=== PATIENT | female | born 1950 | race Caucasian/White ===

== ENCOUNTER 2016-08-31 20:13 | Emergency (ER) | payer MEDICARE, OTHER ==
[~2016-08-31 20:13] MED LIST: ADVAIR DIS1 PUFF/DO2 IH; ANORO ELLIPTA 62.1 - IH; APRESOLINE-DPS50 MG PO; ASA325 MG PO; ASMANEX220 MC1 IH; ASPIR 8181 MG PO; ASPIRIN EC325 MG PO; ASPIRIN EC81 MG PO; ATIVAN-DPS0.5 MG PO; ATIVAN-DPS1 MG PO; ATIVAN0.5 MG PO; ATORVASTATIN CA80 MG PO; BUDESONIDE IH; BUMEX DPS1 MG PO; CALCITRIOL0.5 MCG PO; CALCIUM500 M1 PO; CALTRATE-600 W600 MG PO; CELLCEPT DPS250 MG PO; CELLCEPT500 MG PO; COREG DPS12.5 MG PO; COREG25 MG PO; COUMADIN2.5 MG PO; COUMADIN5 MG PO; DELTASONE DPS10 MG PO; DELTASONE DPS20 MG PO; DUONEB DPS3 ML IH; ELIQUIS5 MG PO; FEOSOL-DPS325 MG PO; FLAGYL-DPS500 MG PO; FLEXERIL DPS5 MG PO; GLUCAGON EMERGEN1 MG IM; GLUCAGON1 MG/ML PO; GLUCAGON1 MG/ML SQ; HABITROL DPS14 MG TP; HABITROL DPS7 MG TD; HUMALOG 50100 UNITS/; HUMALOG 50100 UNITS/ SQ; HUMALOG SQ; HUMALOG100 UNIT/2 IV; HUMALOG100 UNIT/2 SQ; KLOR-CON M2020 ME1 PO; LASIX DPS20 MG PO; LASIX DPS80 MG PO; LEVAQUIN750 MG PO; LIPITOR DPS40 MG PO; LIPITOR80 MG PO; MAG-OX400 MG PO; MAGNESIUM OXID400 MG PO; METOPROLOL TART25 MG PO; MIRAPEX DPS0.25 MG PO; MIRAPEX0.25 MG PO; NICOTINE PATCH1 EAC1 TD; NORVASC DPS10 MG PO; NORVASC5 MG PO; OMEPRAZOLE10 MG PO; OMNICEF DPS300 MG PO; OXYCODONE-ACET1 EAC1 PO; OYSTER SHELL C500 MG PO; PERCOCET 5-3251 EACH PO; POTASSIUM CHLO20 ME2 PO; PROAIR HFA8.5 GM IH; PROAIR RESPICL90 MCG IH; PROGRAF1 MG PO; ROCALTROL DP0.25 MCG PO; ROCALTROL DPS0.5 MCG PO; SENNA LAX8.6 MG PO; SPIRIVA18 MCG IH; SYNTHROID88 MCG PO; TACROLIMUS1 MG PO; TRANDATE DPS100 MG PO; VIIBRYD40 MG PO; XARELTO15 MG PO; ZAROXOLYN2.5 MG PO; ZITHROMAX250 MG PO; [UNRECOGNIZED DRUG - OTHER] IH
[2016-10-03] MEDS ORDERED: BREO ELLIPTA 21 EACH IH (10:06)
[2016-10-03] MEDS ORDERED: GUAIFENESIN ER600 MG PO (10:07)
[2016-10-03] MEDS ORDERED: BUMEX DPS1 MG PO (10:10)
[2016-10-03] MEDS ORDERED: COUMADIN5 MG PO (10:11)
[2016-10-03] MEDS ORDERED: ATIVAN-DPS1 MG PO (10:15)
[2016-10-03] MEDS ORDERED: CALCITRIOL0.5 MCG PO (10:18)
[2016-10-03] MEDS ORDERED: PROGRAF1 MG PO (10:18)
[2016-10-03] MEDS ORDERED: SPIRIVA18 MCG IH (10:19)
[2016-10-03] MEDS ORDERED: NICOTINE PATCH1 EAC1 TD (10:20)
[2016-10-03] MEDS ORDERED: CEPHALEXIN500 MG PO (10:20)
[2016-10-03] MEDS ORDERED: NORVASC5 MG PO (10:21)
[2016-11-03] MEDS ORDERED: HUMALOG100 UNIT/1 SQ (14:42)
[2016-11-03] MEDS ORDERED: GUAIFENESIN ER600 MG PO (14:43)
[2016-11-03] MEDS ORDERED: BUMETANIDE2 MG PO (14:43)
[2016-11-03] MEDS ORDERED: KLOR-CON M2020 ME1 PO (14:43)
[2016-11-03] MEDS ORDERED: BREO ELLIP1 PUFF/DOS IH (14:43)
[2016-11-03] MEDS ORDERED: COUMADIN2.5 MG PO (14:44)
[2016-11-03] MEDS ORDERED: COUMADIN5 MG PO (14:44)
[2016-11-03] MEDS ORDERED: ASPIRIN81 MG PO (14:45)
[2016-11-03] MEDS ORDERED: CARDIZEM CD360 MG PO (14:52)
[2016-11-03] MEDS ORDERED: DELTASONE DPS10 MG PO (14:53)
[2016-11-24] MEDS ORDERED: BUMETANIDE2 MG PO (10:04)
[2016-11-24] MEDS ORDERED: ZAROXOLYN5 MG PO (10:06)
[2016-11-24] MEDS ORDERED: OXY IR DPS5 MG PO (10:07)
[2016-11-24] MEDS ORDERED: KLOR-CON M2020 ME1 PO (10:09)
[2016-11-24] MEDS ORDERED: NICODERM CQ1 EAC1 TP (10:11)
[2016-11-24] MEDS ORDERED: ABILIFY5 MG PO (10:11)
[2016-12-15] MEDS ORDERED: DIFLUCAN DPS100 MG PO (09:03)
[2016-12-15] MEDS ORDERED: LANOXIN DPS0.125 MG PO (09:03)
[2017-01-15] MEDS ORDERED: HUMALOG100 UNIT/2 SQ (17:51)
[2017-01-15] MEDS ORDERED: ATIVAN-DPS0.5 MG PO (17:52)
[2017-01-15] MEDS ORDERED: BUMETANIDE2 MG PO (17:52)
[2017-01-15] MEDS ORDERED: TRANDATE DPS100 MG PO (17:52)
[2017-01-15] MEDS ORDERED: NICOTINE PATCH1 EAC1 TD (17:52)
[2017-01-15] MEDS ORDERED: ABILIFY5 MG PO (17:53)
[2017-01-15] MEDS ORDERED: ASPIRIN EC81 MG PO (17:53)
[2017-01-15] MEDS ORDERED: LIPITOR80 MG PO (17:53)
[2017-01-15] MEDS ORDERED: CALTRATE-600 W600 MG PO (17:54)
[2017-01-15] MEDS ORDERED: LANOXIN DPS0.125 MG PO (17:54)
[2017-01-15] MEDS ORDERED: DILTIAZEM ER360 MG PO (17:54)
[2017-01-15] MEDS ORDERED: FEOSOL-DPS325 MG PO (17:55)
[2017-01-15] MEDS ORDERED: DUONEB DPS3 ML PO (17:55)
[2017-01-15] MEDS ORDERED: SLOW-MAG71.5 MG PO (17:56)
[2017-01-15] MEDS ORDERED: BREO ELLIP1 PUFF/DOS IH (17:56)
[2017-01-15] MEDS ORDERED: GUAIFENESIN ER600 MG PO (17:56)
[2017-01-15] MEDS ORDERED: MIRAPEX DPS0.25 MG PO (17:57)
[2017-01-15] MEDS ORDERED: CELLCEPT500 MG PO (17:57)
[2017-01-15] MEDS ORDERED: PROAIR HFA8.5 GM IH (17:57)
[2017-01-15] MEDS ORDERED: SPIRIVA18 MCG IH (17:58)
[2017-01-15] MEDS ORDERED: TACROLIMUS1 MG PO (17:58)
[2017-01-15] MEDS ORDERED: VIIBRYD40 MG PO (17:58)
[2017-01-15] MEDS ORDERED: ROCALTROL DPS0.5 MCG PO (17:58)
[2017-01-15] MEDS ORDERED: KLOR-CON M2020 ME1 PO (17:59)
[2017-01-15] MEDS ORDERED: ZAROXOLYN5 MG PO (17:59)
== END 2016-08-31 21:10 | disposition home or self-care (01) ==
DX: E11.621 Type 2 diabetes mellitus with foot ulcer (principal); L97.519 Non-pressure chronic ulcer of other part of right foot with unspecified severity; R23.8 Other skin changes; I11.0 Hypertensive heart disease with heart failure; I50.9 Heart failure, unspecified; I48.91 Unspecified atrial fibrillation; F17.210 Nicotine dependence, cigarettes, uncomplicated; Z79.01 Long term (current) use of anticoagulants; Z85.118 Personal history of other malignant neoplasm of bronchus and lung; Z88.8 Allergy status to other drugs, medicaments and biological substances

== ENCOUNTER 2016-09-27 14:27 | Inpatient (IN) | payer MEDICARE, OTHER ==
[~2016-09-27] VITALS: Ht 170.2 cm; Wt 85.8 kg
--- NOTE | 2016-09-30 02:20 | NUR ---
09/30 0220 Pt had episode of chest pain, N/V. Tele showed AFib. Called Dr Verde, gave a NS bolus and Lopressor. HR was in 140s. Zofran given for nausea. Rated pain 9/10 chest pain. On 4L/NC to keep sats up. No change, again called Dr. Verde. Gave Amio bolus and started on continuous drip. After bolus, pt converted back to NSR. Pain was down to 5/10 chest pain. Appeared to be resting more comfortably. Dtr and granddaughter at bedside.
[2016-10-03] MEDS ORDERED: BREO ELLIPTA 21 EACH IH (10:06)
[2016-10-03] MEDS ORDERED: GUAIFENESIN ER600 MG PO (10:07)
[2016-10-03] MEDS ORDERED: BUMEX DPS1 MG PO (10:10)
[2016-10-03] MEDS ORDERED: COUMADIN5 MG PO (10:11)
[2016-10-03] MEDS ORDERED: ATIVAN-DPS1 MG PO (10:15)
[2016-10-03] MEDS ORDERED: PROGRAF1 MG PO (10:18)
[2016-10-03] MEDS ORDERED: CALCITRIOL0.5 MCG PO (10:18)
[2016-10-03] MEDS ORDERED: SPIRIVA18 MCG IH (10:19)
[2016-10-03] MEDS ORDERED: CEPHALEXIN500 MG PO (10:20)
[2016-10-03] MEDS ORDERED: NICOTINE PATCH1 EAC1 TD (10:20)
[2016-10-03] MEDS ORDERED: NORVASC5 MG PO (10:21)
--- NOTE | 2016-10-04 09:42 | CO ---
ADMIT: 09/27/2016 RM/LOC: 425 [facility] MR#: [id number] [address] [address] ARCADIO ROSALES [address] [place] [address] Consultation SEX: F AGE: 66 : 1950 DATE OF CONSULTATION: 09/27/2016 ATTENDING PHYSICIAN: Scot Campos CONSULTING PHYSICIAN: Javier Martinez MD REASON FOR CONSULTATION: Kidney transplant, acute kidney injury, and hypercalcemia. HISTORY OF PRESENT ILLNESS: The patient is a 66-year-old female, who has a history of end-stage renal disease, secondary to diabetic nephropathy. She is status post living-unrelated kidney transplant from her granddaughter in the year 2011. Her baseline serum creatinine has been around 1.9-2.0. She also has hypoparathyroidism and hypercalcemia for which she is on exogenous calcium and calcitriol. She presented to the Dr. Campos's office yesterday because of concerns of her supplemental oxygen and upon labs check, she was reportedly found to have a calcium of 15 along with creatinine of 3.2. She is asymptomatic at this time, although she goes on to mention that she has been somewhat short of breath. She has some dyspnea on exertion. She continues to smoke cigarettes on a daily basis. Denies any fevers, chills, or rigors. Her cough is no different than her baseline. She denies any urinary complaints. Denies any orthopnea or PND. She takes Bumex 2 mg twice a day for her lower extremity edema and she does not have any at this time. REVIEW OF SYSTEMS: A complete review of systems negative in detail except as mentioned in the history of present illness above. PAST MEDICAL HISTORY: 1. Hypertension. 2. Type 2 diabetes mellitus. 3. Diastolic heart failure, chronic. 4. Carotid stenosis. 5. End-stage renal disease, presumed secondary to diabetic nephropathy. She was previously on peritoneal dialysis. She received a living-related kidney transplant in the year 2011. 6. Restless legs syndrome. 7. Dyslipidemia. 8. Hypothyroidism. 9. Chronic back pain. 10.Carcinoma of the lung, status post upper lobe resection. 11.COPD. 12.Ongoing tobacco abuse. 13.On supplemental oxygen around 2-2.5 L. 14.Obstructive sleep apnea. 15.Nonobstructive coronary artery disease. 16.Hypothyroidism and hypocalcemia. ALLERGIES: TO HYDROCODONE. ADMIT: 09/27/2016 RM/LOC: 425 [facility] MR#: [id number] [address] [address] CEMARCADIO MORRELL [address] [place] [address] Consultation SEX: F AGE: 66 : 1950 MEDICATIONS: 1. She takes tacrolimus 3 mg twice a day along with MMF 1000 mg twice a day. 2. She also takes Bumex 2 mg twice a day. 3. She takes calcitriol and calcium, the does of which is not clear. SOCIAL HISTORY: She does smoke cigarettes on a daily basis. Denies any alcohol or recreational drug use. FAMILY HISTORY: No family history of chronic kidneys or renal replacement therapy. PHYSICAL EXAMINATION: VITAL SIGNS: Temperature 97.3 Fahrenheit, pulse 67, blood pressure 116/59, saturating 91% on 2 L nasal cannula. GENERAL: She is comfortable in her recliner. HEENT: Head is nontraumatic and normocephalic. Extraocular movements are intact. Dry mucosa. NECK: Supple without any JVD. CHEST: Clear to auscultation. CVS: Regular rhythm. S1 and S2. No rubs, murmurs, or gallops. ABDOMEN: Soft and nontender. EXTREMITIES: No edema. SKIN: No rash or nodules. NEUROLOGIC: Alert and oriented x 3. She is able to move all extremities. PSYCHIATRIC: Affect and memory within normal limits. LABORATORY DATA: None available at this time. Per report, creatinine was 3.2 and calcium was 15.2. ASSESSMENT AND PLAN: 1. Kidney transplant status-monitor allograft function with chemistries and urine studies. Her decline in her kidney function could be secondary to hypercalcemia. 2. Immunosuppression-continue tacrolimus 3 mg twice a day along with MMF 1000 mg twice a day. 3. Hypercalcemia-stop exogenous calcium supplements as well as calcitriol. I will aggressively resuscitate with normal saline and Lasix along with that. Monitor calcium level closely. Thank you for this consultation and allowing me the opportunity to participate in this patient's care. Please do not hesitate to contact with any questions. Javier Martinez MD/ jaspal JOB #: [id number] CC: Scot Campos, Attending Physician Scot Campos, Family Physician
--- NOTE | 2016-10-04 16:22 | HP ---
ADMIT: 09/27/2016 RM/LOC: 425 [facility] MR#: [id number] [address] [address] ARCADIO ROSALES [address] [place] [address] History and Physical SEX: F AGE: 66 : 1950 DATE OF SERVICE: CHIEF COMPLAINT: This is a 66-year-old female presented with some weakness and somnolence to the office today. I had just seen her yesterday. She had a calcium of 15.3. At that time, we were giving her IV fluid because of some low blood pressure and I advised her to be admitted to the hospital. We set this up; however, she refused because she reports she was feeling much better. We had her come back the next day for evaluation again, so her labs were done again today. Now her calcium is 15.4. She again says, she feels very terrible, on a scale of 1-10, she labels it 9. She has been very somnolent and has been falling asleep inadvertently. Her kidney function was worse yesterday, it is now up to 3.2, which is worse for her as well. She has some increased shortness of breath which is kind of chronic for her but she says this maybe worse. She denies any underlying urinary symptoms. Denies any changes in her medicine or changes in her symptoms, otherwise, she has been really sleepy. PAST HISTORY: 1. Kidney transplant. 2. Chronic kidney disease, on stage III after the transplant. 3. Hypothyroidism. 4. Chronic diastolic congestive heart failure. 5. COPD. 6. Chronic ongoing tobacco and nicotine dependence. 7. Chronic back pain. 8. History of right knee replacement. 9. History of tonsillectomy and kidney transplant. 10.History of hypocalcemia. 11.History of parathyroidectomy. SOCIAL HISTORY: She smokes. Her recently . Denies any current alcohol or drug use. She lives at home. Granddaughter helps take care of her. OTHER PAST HISTORY: Includes diabetes, uses the insulin pump. Paroxysmal atrial fibrillation, history of peripheral vascular disease with carotid stenosis. She has some obstructive sleep apnea, restless legs syndrome, history of PE, and chronic depression and anxiety. She has history of lung cancer, status post resection. FAMILY HISTORY: Reviewed but noncontributory except as above. REVIEW OF SYSTEMS: Other complete review of systems obtained negative except as above. PHYSICAL EXAMINATION: VITAL SIGNS: Temperature 97.3, pulse 63, respirations 22, blood pressure 168/75, oxygen saturation 91% on 4 L of oxygen by nasal cannula. GENERAL: This is an ill-appearing 66-year-old female. She is no acute ADMIT: 09/27/2016 RM/LOC: 425 [facility] MR#: [id number] [address] [facility] [address] [place] [address] History and Physical SEX: F AGE: 66 : 1950 distress but appears ill and is somnolent. HEENT: Pupils equal, round, and reactive to light and accommodation. Her extraocular muscles are intact. Her throat is clear but dry. NECK: Supple. Trachea midline. Thyroid not palpable. HEART: Regular rate and rhythm, 2/6 systolic murmur heard on the left sternal border. LUNGS: Diminished but clear bilaterally. ABDOMEN: Protuberant, mildly distended, mildly tympanic, nontender. Lower extremities have trace edema bilaterally. She can move all extremities equally bilaterally. She is quite somnolent. LABORATORY AND X-RAY DATA: As above. ASSESSMENT AND PLAN: 1. Acute kidney injury. 2. Hypercalcemia. 3. Somnolence. 4. Chronic diastolic congestive heart failure. 5. Chronic obstructive pulmonary disease. 6. History of kidney transplant. 7. Atrial fibrillation. 8. Chronic anticoagulation. PLAN: She has been admitted to the hospital. Renal consult obtained, get some help getting her calcium down, and then hopefully her kidney function will improve with that. We will watch her very closely in regard to her blood sugars as well as her fluid status. Scot Campos MD/ jaspal JOB #: [id number] CC: Scot Campos, Attending Physician Scot Campos, Family Physician
--- NOTE | 2016-10-08 12:58 | DS ---
ADMIT: 09/27/2016 RM/LOC: 425 [facility] MR#: [id number] [address] [place], [place] [address] ARCADIO ROSALES [address] [place] [address] General Discharge Summary SEX: F AGE: 66 : 1950 ADMISSION DATE: 09/27/2016 DISCHARGE DATE: 10/02/2016 FINAL DIAGNOSES: 1. Hypercalcemia. 2. Acute kidney injury, on chronic kidney disease. 3. History of renal transplant. 4. Chronic obstructive pulmonary disease. 5. Chronic diastolic congestive heart failure. 6. Atrial fibrillation. 7. History of pulmonary embolism. CONSULTANTS: Nephrology. REASON FOR ADMISSION: This is a 66-year-old female, presented to the office with somnolence and not feeling well. She was found to have severely-elevated calcium. She was admitted. See H and P for details. HOSPITAL COURSE: The patient was admitted, placed on IV fluids. Nephrology consult obtained. She was given IV fluid as well as IV Lasix and calcium started to come down nicely. She was feeling much better over the next few days. Blood sugars were elevated, she was monitoring her insulin pump. She had some blood pressure fluctuations, they were little more elevated by day of discharge. She ultimately had an episode of atrial fibrillation with RVR. We treated with IV Lopressor as well as a fluid bolus and ultimately, IV amiodarone bolus and drip. She converted back to normal sinus rhythm and did better. She also had some hypomagnesemia, was given some Mag sulfate and also by day of discharge, she feels much better, so she was arranged to be discharged to home with close followup. DISCHARGE MEDICATIONS: 1. Aspirin 81 mg daily. 2. Bumex 2 mg q.a.m., 1 mg p.m. 3. Caltrate 600 mg p.o. b.i.d. 4. CellCept 500 mg b.i.d. 5. Iron 325 mg b.i.d. 6. Keflex 1000 mg b.i.d. x2 more days. She was taking that for an upper respiratory infection. 7. Lipitor 80 mg at bedtime. 8. Mirapex 0.25 mg at bedtime. 9. Mucinex 600 mg b.i.d. 10.Norvasc 5 mg daily. 11.Prograf 3 mg p.o. b.i.d. 12.Rocaltrol 0.5 mcg one p.o. daily. 13.Labetalol 100 mg b.i.d. 14.Viibryd 40 mg daily. 15.Breo one puff daily. 16.Spiriva 1 puff daily. 17.Insulin pump per her own instructions. ADMIT: 09/27/2016 RM/LOC: 425 [facility] MR#: [id number] [address] [address] CEMPERARCADIO [address] [place] [address] General Discharge Summary SEX: F AGE: 66 : 1950 18.Habitrol patch 21 mcg daily. 19.Ativan 1 mg b.i.d. and 0.5 to 1 mg daily p.r.n. 20.Glucagon 1 mg kit daily p.r.n. 21.DuoNeb q.i.d. 22.Warfarin 5 mg on Friday and Saturdays and 2.5 mg on Friday, Friday, , Friday, and Friday. 23.Potassium chloride 20 mEq daily. She will have renal diet. PT/INR, BMP, and magnesium this coming Friday. She is on 1 L of oxygen with activity. Follow with me in less than 1 week and she should do daily weights. I did spend 35 minutes with her on the day of discharge, explaining her current diagnoses and how to prevent exacerbations, specifically watching her weights carefully and taking her medicines faithfully as well as strict control of her blood sugars. We went over her medication list and followup needs. I answered any questions that she may have. Scot Campos MD/ jaspal JOB #: [id number] CC: Scot Campos MD, Attending Physician Scot Campos MD, Family Physician
[2016-11-03] MEDS ORDERED: HUMALOG100 UNIT/1 SQ (14:42)
[2016-11-03] MEDS ORDERED: BUMETANIDE2 MG PO (14:43)
[2016-11-03] MEDS ORDERED: KLOR-CON M2020 ME1 PO (14:43)
[2016-11-03] MEDS ORDERED: BREO ELLIP1 PUFF/DOS IH (14:43)
[2016-11-03] MEDS ORDERED: GUAIFENESIN ER600 MG PO (14:43)
[2016-11-03] MEDS ORDERED: COUMADIN2.5 MG PO (14:44)
[2016-11-03] MEDS ORDERED: COUMADIN5 MG PO (14:44)
[2016-11-03] MEDS ORDERED: ASPIRIN81 MG PO (14:45)
[2016-11-03] MEDS ORDERED: CARDIZEM CD360 MG PO (14:52)
[2016-11-03] MEDS ORDERED: DELTASONE DPS10 MG PO (14:53)
[2016-11-24] MEDS ORDERED: BUMETANIDE2 MG PO (10:04)
[2016-11-24] MEDS ORDERED: ZAROXOLYN5 MG PO (10:06)
[2016-11-24] MEDS ORDERED: OXY IR DPS5 MG PO (10:07)
[2016-11-24] MEDS ORDERED: KLOR-CON M2020 ME1 PO (10:09)
[2016-11-24] MEDS ORDERED: NICODERM CQ1 EAC1 TP (10:11)
[2016-11-24] MEDS ORDERED: ABILIFY5 MG PO (10:11)
[2016-12-15] MEDS ORDERED: DIFLUCAN DPS100 MG PO (09:03)
[2016-12-15] MEDS ORDERED: LANOXIN DPS0.125 MG PO (09:03)
[2017-01-15] MEDS ORDERED: HUMALOG100 UNIT/2 SQ (17:51)
[2017-01-15] MEDS ORDERED: NICOTINE PATCH1 EAC1 TD (17:52)
[2017-01-15] MEDS ORDERED: TRANDATE DPS100 MG PO (17:52)
[2017-01-15] MEDS ORDERED: ATIVAN-DPS0.5 MG PO (17:52)
[2017-01-15] MEDS ORDERED: BUMETANIDE2 MG PO (17:52)
[2017-01-15] MEDS ORDERED: ABILIFY5 MG PO (17:53)
[2017-01-15] MEDS ORDERED: ASPIRIN EC81 MG PO (17:53)
[2017-01-15] MEDS ORDERED: LIPITOR80 MG PO (17:53)
[2017-01-15] MEDS ORDERED: LANOXIN DPS0.125 MG PO (17:54)
[2017-01-15] MEDS ORDERED: DILTIAZEM ER360 MG PO (17:54)
[2017-01-15] MEDS ORDERED: CALTRATE-600 W600 MG PO (17:54)
[2017-01-15] MEDS ORDERED: FEOSOL-DPS325 MG PO (17:55)
[2017-01-15] MEDS ORDERED: DUONEB DPS3 ML PO (17:55)
[2017-01-15] MEDS ORDERED: GUAIFENESIN ER600 MG PO (17:56)
[2017-01-15] MEDS ORDERED: SLOW-MAG71.5 MG PO (17:56)
[2017-01-15] MEDS ORDERED: BREO ELLIP1 PUFF/DOS IH (17:56)
[2017-01-15] MEDS ORDERED: PROAIR HFA8.5 GM IH (17:57)
[2017-01-15] MEDS ORDERED: CELLCEPT500 MG PO (17:57)
[2017-01-15] MEDS ORDERED: MIRAPEX DPS0.25 MG PO (17:57)
[2017-01-15] MEDS ORDERED: TACROLIMUS1 MG PO (17:58)
[2017-01-15] MEDS ORDERED: ROCALTROL DPS0.5 MCG PO (17:58)
[2017-01-15] MEDS ORDERED: VIIBRYD40 MG PO (17:58)
[2017-01-15] MEDS ORDERED: SPIRIVA18 MCG IH (17:58)
[2017-01-15] MEDS ORDERED: ZAROXOLYN5 MG PO (17:59)
[2017-01-15] MEDS ORDERED: KLOR-CON M2020 ME1 PO (17:59)
== END 2016-10-02 11:15 | disposition home or self-care (01) | DRG 683 ==
LOC: 4PCU 14:27
PROVIDERS: ADMIT Internal Medicine
DX: N17.9 Acute kidney failure, unspecified (principal); I50.32 Chronic diastolic (congestive) heart failure; E11.22 Type 2 diabetes mellitus with diabetic chronic kidney disease; I13.0 Hypertensive heart and chronic kidney disease with heart failure and stage 1 through stage 4 chronic kidney disease, or unspecified chronic kidney disease; I48.0 Paroxysmal atrial fibrillation; E83.52 Hypercalcemia; G25.81 Restless legs syndrome; Z94.0 Kidney transplant status; E83.42 Hypomagnesemia; I65.29 Occlusion and stenosis of unspecified carotid artery; F32.9 Major depressive disorder, single episode, unspecified; N18.3 Chronic kidney disease, stage 3 (moderate); E03.9 Hypothyroidism, unspecified; J44.9 Chronic obstructive pulmonary disease, unspecified; M54.9 Dorsalgia, unspecified; F17.210 Nicotine dependence, cigarettes, uncomplicated; G89.29 Other chronic pain; I25.10 Atherosclerotic heart disease of native coronary artery without angina pectoris; E20.9 Hypoparathyroidism, unspecified; I73.9 Peripheral vascular disease, unspecified; G47.33 Obstructive sleep apnea (adult) (pediatric); F41.9 Anxiety disorder, unspecified; Z79.01 Long term (current) use of anticoagulants; Z96.41 Presence of insulin pump (external) (internal); Z85.118 Personal history of other malignant neoplasm of bronchus and lung; Z86.711 Personal history of pulmonary embolism; Z96.651 Presence of right artificial knee joint; Z79.899 Other long term (current) drug therapy

== ENCOUNTER 2016-10-18 17:39 | Emergency (ER) | payer MEDICARE, OTHER ==
[~2016-10-18 17:39] MED LIST changes: +BREO ELLIPTA 21 EACH IH; +CEPHALEXIN500 MG PO; +GUAIFENESIN ER600 MG PO
--- NOTE | 2016-10-22 10:17 | ER ---
ADMIT: 10/18/2016 RM/LOC: ER [facility] MR#: [id number] [id number] [place], [place] [address] ARCADIO ROSALES [address] [place] [address] Emergency Room Report SEX: F AGE: 66 : 1950 DATE: 10/18/2016 CHIEF COMPLAINT: Cough. HISTORY OF PRESENT ILLNESS: This is a chronically ill 66-year-old female, who presents to the ER with complaints of a cough for the past 7 days. She was seen by Dr. Campos on Friday and started on a course of doxycycline and prednisone for COPD exacerbation. She states since then, she has not really improved much. She continues to have a nagging cough, complains of chest pain with the cough. Admits to shortness of breath; however, she does have COPD, and does use oxygen at home, primarily at night. She has associated chills. PAST MEDICAL HISTORY: Significant for atrial fibrillation, on Coumadin. CHF, diabetes on insulin, hypertension, COPD, history of pneumonia and PE. She does have a kidney transplant and takes medications that secondarily caused immunosuppression. She has sleep apnea, restless legs syndrome and chronic kidney disease. SOCIAL HISTORY: She continues to smoke a half pack per day. COURSE IN THE EMERGENCY ROOM: VITAL SIGNS: Patient was seen and examined. BP 197/46, heart rate 94, respirations 20, temp 96.6. GENERAL: She is in no acute distress. She is alert. HEENT: Eyes normal inspection. Normal ENT. Pupils are equal and reactive. Ears are normal. No erythema or signs of infection. Nose has some scant clear fluid. Pharynx is normal. No erythema or tonsillar exudates. Airway is normal. NECK: Soft and supple. RESPIRATORY: She does have some coarse breath sounds with wheezes bilaterally. She does move air. She is in no respiratory distress. ABDOMEN: Nontender. HEART: Regular rate and rhythm. No murmurs, gallops, or rubs. SKIN: Warm and dry. She is slightly pale. EXTREMITIES: Nontender. She does have 1+ pitting edema bilaterally; however, she said this is improved. On further questioning, patient's dry weight typically runs 189-191 pounds. Today, she was 187 pounds. Does not feel like fluid is contributing to her current condition. I did get a chest x-ray, which was stable from an exam performed 3 weeks ago. She does have borderline cardiomegaly and increased interstitial markings consistent with her chronic COPD. I did get some basic lab work on. Her INR was 3.61. Sodium 138, potassium 4.3, chloride 98, CO2 was 30, BUN was 37, creatinine 2.3, which she typically run in the 2 secondary to chronic kidney disease. CK 93. She had a troponin 0.115. White count was 4.5, hemoglobin 10.7, hematocrit 35, platelets 146. EKG was performed showing a sinus rhythm with no acute ST-T changes. I did discuss this patient with Dr. Verde, who reviewed this case and thought it was to be appropriate for her to return home this evening with a tapering course of steroids and a followup with . ADMIT: 10/18/2016 RM/LOC: [facility] MR#: [id number] [address] [place] [id number] ARCADIO ROSALES [address] [place] [address] Emergency Room Report SEX: F AGE: 66 : 1950 Andres. I did review her troponin, she typically trends greater thanthreshold secondary to her kidney disease and comobidiites. IMPRESSION: 1. Acute on chronic bronchitis. 2. Chronic obstructive pulmonary disease, on oxygen at night. 3. Congestive heart failure. 4. Diabetes. 5. Hypertension. 6. History of pulmonary embolism. 7. Immunosuppression secndary to kidney transplant DISPOSITION: The patient was discharged with a course of prednisone to start after her current prescription with Dr. Campos as he started her on 50 mg burst for 5 days, she is to start 40 mg daily for 3 days and then 30 mg p.o. daily for 3 days, and then 20 mg p.o. daily for 3 days, and finally 10mg p.o. daily for 3 days. She was also provided a script for Phenergan with codeine 1 teaspoon every 4-6 hours as needed for cough. She is to follow up with Dr. Campos if she does not improve. Certainly, continue all of her home medications to include her oxygen and breathing treatments. Questions were sought and answered to the best of my ability and to the patient's satisfaction. She was discharged from the department in stable condition. BONNIE Jj / William Harvey MD / jaspal JOB #: [id number] CC: Chino Tai MD, Attending Physician Scot Campos MD, Family Physician
[2016-11-03] MEDS ORDERED: HUMALOG100 UNIT/1 SQ (14:42)
[2016-11-03] MEDS ORDERED: KLOR-CON M2020 ME1 PO (14:43)
[2016-11-03] MEDS ORDERED: GUAIFENESIN ER600 MG PO (14:43)
[2016-11-03] MEDS ORDERED: BREO ELLIP1 PUFF/DOS IH (14:43)
[2016-11-03] MEDS ORDERED: BUMETANIDE2 MG PO (14:43)
[2016-11-03] MEDS ORDERED: COUMADIN2.5 MG PO (14:44)
[2016-11-03] MEDS ORDERED: COUMADIN5 MG PO (14:44)
[2016-11-03] MEDS ORDERED: ASPIRIN81 MG PO (14:45)
[2016-11-03] MEDS ORDERED: CARDIZEM CD360 MG PO (14:52)
[2016-11-03] MEDS ORDERED: DELTASONE DPS10 MG PO (14:53)
[2016-11-24] MEDS ORDERED: BUMETANIDE2 MG PO (10:04)
[2016-11-24] MEDS ORDERED: ZAROXOLYN5 MG PO (10:06)
[2016-11-24] MEDS ORDERED: OXY IR DPS5 MG PO (10:07)
[2016-11-24] MEDS ORDERED: KLOR-CON M2020 ME1 PO (10:09)
[2016-11-24] MEDS ORDERED: NICODERM CQ1 EAC1 TP (10:11)
[2016-11-24] MEDS ORDERED: ABILIFY5 MG PO (10:11)
[2016-12-15] MEDS ORDERED: DIFLUCAN DPS100 MG PO (09:03)
[2016-12-15] MEDS ORDERED: LANOXIN DPS0.125 MG PO (09:03)
[2017-01-15] MEDS ORDERED: HUMALOG100 UNIT/2 SQ (17:51)
[2017-01-15] MEDS ORDERED: NICOTINE PATCH1 EAC1 TD (17:52)
[2017-01-15] MEDS ORDERED: TRANDATE DPS100 MG PO (17:52)
[2017-01-15] MEDS ORDERED: ATIVAN-DPS0.5 MG PO (17:52)
[2017-01-15] MEDS ORDERED: BUMETANIDE2 MG PO (17:52)
[2017-01-15] MEDS ORDERED: ASPIRIN EC81 MG PO (17:53)
[2017-01-15] MEDS ORDERED: LIPITOR80 MG PO (17:53)
[2017-01-15] MEDS ORDERED: ABILIFY5 MG PO (17:53)
[2017-01-15] MEDS ORDERED: CALTRATE-600 W600 MG PO (17:54)
[2017-01-15] MEDS ORDERED: DILTIAZEM ER360 MG PO (17:54)
[2017-01-15] MEDS ORDERED: LANOXIN DPS0.125 MG PO (17:54)
[2017-01-15] MEDS ORDERED: DUONEB DPS3 ML PO (17:55)
[2017-01-15] MEDS ORDERED: FEOSOL-DPS325 MG PO (17:55)
[2017-01-15] MEDS ORDERED: SLOW-MAG71.5 MG PO (17:56)
[2017-01-15] MEDS ORDERED: BREO ELLIP1 PUFF/DOS IH (17:56)
[2017-01-15] MEDS ORDERED: GUAIFENESIN ER600 MG PO (17:56)
[2017-01-15] MEDS ORDERED: CELLCEPT500 MG PO (17:57)
[2017-01-15] MEDS ORDERED: PROAIR HFA8.5 GM IH (17:57)
[2017-01-15] MEDS ORDERED: MIRAPEX DPS0.25 MG PO (17:57)
[2017-01-15] MEDS ORDERED: TACROLIMUS1 MG PO (17:58)
[2017-01-15] MEDS ORDERED: ROCALTROL DPS0.5 MCG PO (17:58)
[2017-01-15] MEDS ORDERED: SPIRIVA18 MCG IH (17:58)
[2017-01-15] MEDS ORDERED: VIIBRYD40 MG PO (17:58)
[2017-01-15] MEDS ORDERED: KLOR-CON M2020 ME1 PO (17:59)
[2017-01-15] MEDS ORDERED: ZAROXOLYN5 MG PO (17:59)
== END 2016-10-18 20:20 | disposition home or self-care (01) ==
LOC: ER 17:39
DX: J44.1 Chronic obstructive pulmonary disease with (acute) exacerbation (principal); E11.9 Type 2 diabetes mellitus without complications; I10 Essential (primary) hypertension; Z86.711 Personal history of pulmonary embolism; Z79.01 Long term (current) use of anticoagulants; Z79.82 Long term (current) use of aspirin; Z88.5 Allergy status to narcotic agent

== ENCOUNTER 2016-10-29 14:55 | Inpatient (IN) | payer MEDICARE, OTHER ==
[~2016-10-29] VITALS: Ht 170.2 cm; Wt 85.2 kg
--- NOTE | ~2016-10-29 | ECH ---
Transthoracic Echocardiography Report (TTE) Demographics Patient Name ARCADIO ROSALES Date of Study 10/30/2016 Patient Number [id number] Visit Number [id number] Date of 1950 Room Number 420 Accession Number [id number] Gender Female Age 66 year(s) Referring Andres Escobaris Isi Hoop Flaring Machine Operator Helper Amanda Duvall [facility] Physician Physician Interpreting Cooper Plummer Culinary Chef Physician Supervising Ordering Physician King Live Rodrigez MD, MD/MLP Nurse Stress Lab Head Conclusions Contractility Score Summary Normal Left Ventricular contractility was noted. Summary Technically adequate exam. The estimated left ventricular ejection fraction is 60-65% in underlying atrial fibrillation. Moderate to severe left ventricular hypertrophy. The left atrium is severely dilated by LA volume index measurement. Mild to moderate mitral valve stenosis. The mean gradient is 5.45 mmHg. Stable from exam 06/29/16. Mild mitral regurgitation by color Doppler. Small posterior pericardial effusion. Effusion smaller than exam 06/29/16. Recommendation The patient will be given the results of this study by the physician who ordered the exam. Procedure Type of Study TTE procedure:Echo Limited SF. Procedure Date Date: 10/30/2016 Start: 11:18 AM Technical Quality: Adequate visualization Indications:Atrial fibrillation and Congestive heart failure. Appropriate Use Criteria: 9 Height: 67 inches Weight: 184 pounds BSA: 1.95 m Rhythm: Atrial fibrillation HR: 70 bpm BP: 166/69 mmHg M-Mode/2D Measurements LV Diastolic Dimension: 4.98 cm LV Systolic Dimension: 3.77 cm LV Septum Diastolic: 1.56 cm LV PW Diastolic: 1.99 cm AO Root Dimension: 2.47 cm Cardiac Output: 2.5 l/min LA Dimension: 4.48 cm Cardiac Index: 1.28 l/min*m RV Diastolic Dimension: 2.72 cm LA volume index: 51 ml/m Post Pericard Effusion: 0.9 cm LVOT: 1.72 cm LVOT VTI: 15.37 cm RV Base: 3.4 cm LV Stroke volume: 35.69 ml RV Mid: 2.2 cm LV Stroke volume index: 18.3 ml/m RV Length: 6.2 cm Doppler Measurements AV Peak Velocity: 1.18 m/s MV Peak E-Wave: 1.76 m/s AV Peak Gradient: 5.57 mmHg MV Peak A-Wave: 0.72 m/s AV Mean Gradient: 3.43 mmHg MV E/A Ratio: 2.44 LVOT Peak Velocity: 0.85 m/s MV P1/2t: 59.7 msec AV Area (Continuity):1.6 cm MV Deceleration Time: 227.9 msec MV Area (PHT): 3.68 cm PV Peak Velocity: 1.1 m/s PV Peak Gradient: 4.84 mmHg RA Area: 13.7 cm Findings Left Ventricle The left ventricle is normal in size . Moderate to severe left ventricular hypertrophy. Diastolic function indeterminate due to patient's arrhythmia. Right Ventricle Normal right ventricle structure and function. Left Atrium The left atrium is severely dilated by LA volume index measurement. Right Atrium Normal right atrial size. Mitral Valve Moderate mitral annular calcification. Mild to moderate mitral valve stenosis. The mean gradient is 5.45 mmHg. Mild mitral regurgitation by color Doppler. Aortic Valve The aortic valve is mildly sclerotic. There is no aortic regurgitation by color Doppler. Tricuspid Valve Normal tricuspid valve structure and function. Trivial tricuspid regurgitation by color Doppler. Pulmonic Valve Normal pulmonic valve structure and function. Mild pulmonic valve regurgitation by color Doppler. Pericardial Effusion Small posterior pericardial effusion. Miscellaneous Visualized portions of the aortic root and ascending aorta appear normal in size. Pleural Effusion No evidence of pleural effusion. Contractility Score LV regional wall motion:(0-Non visualized 1-Normal 2-Hypokinesis 3-Akinesis 4-Dyskinesis 5-Aneurysm) Signature
--- NOTE | 2016-10-31 21:49 | NUR ---
Called and spoke with Dr Cotter regarding blood glucose greater than 400 (417, [phone]). She asked the pt to give bolus as normally would at home. Recheck in 2 hrs and change sites of pump if still >400. Explained to pt and she indicated understanding.
--- NOTE | 2016-11-03 12:33 | DS ---
ADMIT: 10/29/2016 RM/LOC: 420 [facility] [id number] [id number] [address] [place], [place] [address] ARCADIO ROSALES [address] [place] [address] Discharge Summary SEX: F AGE: 66 : 1950 ADMISSION DATE: 10/29/2016 DISCHARGE DATE: 11/01/2016 DISCHARGE DIAGNOSES: 1. Atrial fibrillation with rapid ventricular response. 2. Coronary artery disease. 3. Diabetes mellitus. 4. Status post kidney transplant on chronic immunosuppression. 5. Hypertension. 6. Hyperlipidemia. 7. COPD (chronic obstructive pulmonary disease). 8. Tobacco abuse. 9. Right foot ulcer, chronic. CONSULTATIONS: Cardiology. PROCEDURES: None. REASON FOR ADMISSION: A very pleasant, 66-year-old female presented to the emergency room on the day of admission with complaints of burning chest pain and palpitations. She was noted to be in atrial fibrillation with RVR, and she was admitted for further evaluation and treatment. For complete details, please see H and P dictated on day of admission. HOSPITAL COURSE: At the time of admission, the patient was placed in a monitored bed. Cardiology was consulted, and she underwent rate control strategies. She was followed with serial cardiac enzymes and EKGs. She was noted to have a mild troponin bump that was thought to be all demand ischemia from her atrial fibrillation with RVR. She is chronically anticoagulated, and she was continued on Coumadin. Cardiology made several medication changes including increasing Cardizem to using some p.r.n. Lopressor to get her rates finally under good control. She was seen by Wound Care during her hospitalization. She was continued on the remainder of her home medications. She continued to use her home insulin pump for glucose management as an inpatient and overall did well except for needing some p.r.n. Levemir given by Dr. Campos through the hospitalization. She ambulated and ate and was ADMIT: 10/29/2016 RM/LOC: 420 [facility] MR#: [id number] [address] [address] ARCADIO ROSALES [address] [place] [address] Discharge Summary SEX: F AGE: 66 : 1950 thought to be ready for discharge on 11/01. DISCHARGE MEDICATIONS: Are found on discharge medication list, noted increasing doses of labetalol and Cardizem per Cardiology. DISCHARGE ACTIVITY: As tolerated. DISCHARGE DIET: Cardiac ADA as tolerated. FOLLOWUP: She will have follow up with Cardiology when they will talk about outpatient stress testing, and she will have follow up with Dr. Campos in the next 7-10 days. Enio Rojas MD/ ania JOB #: [id number] CC: Scot Campos MD, Attending Physician Scot Campos MD, Family Physician
[2016-11-03] MEDS ORDERED: HUMALOG100 UNIT/1 SQ (14:42)
[2016-11-03] MEDS ORDERED: BUMETANIDE2 MG PO (14:43)
[2016-11-03] MEDS ORDERED: KLOR-CON M2020 ME1 PO (14:43)
[2016-11-03] MEDS ORDERED: BREO ELLIP1 PUFF/DOS IH (14:43)
[2016-11-03] MEDS ORDERED: GUAIFENESIN ER600 MG PO (14:43)
[2016-11-03] MEDS ORDERED: COUMADIN5 MG PO (14:44)
[2016-11-03] MEDS ORDERED: COUMADIN2.5 MG PO (14:44)
[2016-11-03] MEDS ORDERED: ASPIRIN81 MG PO (14:45)
[2016-11-03] MEDS ORDERED: CARDIZEM CD360 MG PO (14:52)
[2016-11-03] MEDS ORDERED: DELTASONE DPS10 MG PO (14:53)
--- NOTE | 2016-11-04 10:31 | ER ---
ADMIT: 10/29/2016 RM/LOC: 420 [facility] MR#: [id number] [id number] [place], [place] [address] ARCADIO ROSALES [address] [place] [address] Emergency Room Report SEX: F AGE: 66 : 1950 DATE: 10/29/2016 ADDENDUM: This is a 66-year-old white female with atrial fibrillation, but is coming in now with atrial fibrillation with rapid rate. She also has a little bump in her troponin. Chest x-ray, big heart. CBC negative. BNP is 10,893. Potassium is 3.1 which is borderline, which is low I should say. At this time, I spoke with Dr. Campos. He will admit the patient. Started a Cardizem drip on her while she was here. She will be admitted. CONDITION ON DISCHARGE: Serious, but stable. Chino Tai MD/ mkl JOB #: [id number] CC: Scot Campos MD, Attending Physician Scot Campos MD, Family Physician
--- NOTE | 2016-11-04 21:22 | HP ---
ADMIT: 10/29/2016 RM/LOC: 420 [facility] [id number] [id number] [address] [place], [place] [address] ARCADIO ROSALES [address] [place] [address] History and Physical SEX: F AGE: 66 : 1950 DATE OF SERVICE: CHIEF COMPLAINT: Chest pain. HISTORY OF PRESENT ILLNESS: This is a 66-year-old female. She presented with chest pain. She initially felt like she had some heartburn, but it kept getting worse, so she presented to the emergency room. She was found to have a heart rate in the 140s. She also had noted this when she checks her oxygen at home, it read her pulse in the 140s. She denies feeling any palpitations. Just felt like she had heartburn, sickness to her stomach and that is what led her to the emergency room. Since being in the emergency room, she has been started on diltiazem drip. Her heart rates now are anywhere from 100 to 120, it is irregular, and in atrial fibrillation. She currently feels well. Denies complaints. Denies any increased shortness of breath. Denies any urinary problems. PAST MEDICAL HISTORY: Reviewed from her last H and P, and unchanged. SOCIAL HISTORY: Reviewed from her last H and P, and unchanged. FAMILY HISTORY: Reviewed from her last H and P, and unchanged. MEDICATIONS: Reviewed from her last H and P, and unchanged. REVIEW OF SYSTEMS: Other complete review of systems was obtained and negative except as above. PHYSICAL EXAMINATION: VITAL SIGNS: Heart rates 100s to 120s, blood pressures 140s over 70s, oxygen saturation 93% on 2 L oxygen by nasal cannula, respirations 16. GENERAL: This is a well-appearing 66-year-old female. She is in no apparent distress. She is alert. She is oriented. HEENT: Head is normocephalic and atraumatic. Pupils are equal, round, and reactive to light and accommodation. Her extraocular muscles are intact. Her throat is clear. NECK: Supple. Trachea midline. Thyroid not palpable. HEART: Regular rate and rhythm with 3/6 systolic murmur. Tachycardic and irregular. LUNGS: Diminished to auscultation bilaterally. ABDOMEN: Mildly protuberant, but soft without any tenderness. EXTREMITIES: Lower extremities, has trace lower extremity pitting edema. She has a right plantar surface foot ulcer/wound, which is long-standing, looks clean and intact. NEURO: Cranial nerves are intact. She can move all extremities equally bilaterally. LABORATORY AND X-RAY DATA: Shows a mildly elevated troponin. CK is normal. EKG shows atrial fibrillation with RVR, no ischemic changes. X-rays unchanged. ADMIT: 10/29/2016 RM/LOC: 420 [facility] MR#: [id number] [address] [place] [address] History and Physical SEX: F AGE: 66 : 1950 ASSESSMENT: 1. Atrial fibrillation with rapid ventricular rate. 2. Chest pain. 3. Coronary artery disease. 4. History of renal transplant. 5. Diabetes. 6. Chronic kidney disease, stage 4. 7. Chronic diastolic congestive heart failure. PLAN: She will be admitted to PCU. We will continue her on her diltiazem drip to control her rates. We will monitor her enzymes to make sure she does not have any signs of coronary ischemia. I will consult Cardiology to see if she needs any different antiarrhythmic adjustment of her medications. I will continue to control her blood sugars with her own insulin pump, and continue her other same home medications. She is anticoagulated with warfarin, and we will monitor INR while she is here on that. Scot Campos MD/ jaspal JOB #: [id number] CC: Scot Campos, Attending Physician Scot Campos, Family Physician
--- NOTE | 2016-11-06 15:58 | CO ---
ADMIT: 10/29/2016 RM/LOC: 420 [facility] MR#: [id number] [address] [place], [place] [address] IRMA ROSALES [address] [place] [address] Consultation SEX: F AGE: 66 : 1950 ATTENDING PHYSICIAN: Scot Campos CONSULTING PHYSICIAN: Live De La Cruz MD REASON FOR CONSULT: Atrial fibrillation with RVR. Clair Paniagua RN, scribing for Dr. Live De La Cruz. HISTORY OF PRESENT ILLNESS: Irma is a pleasant 66-year-old female I have been asked to see in Cardiology consultation by Dr. Campos for atrial fibrillation with RVR. She follows regularly with Dr. Leonardo and was last seen in March of 2016 at [facility]. At that time, she did have a carotid duplex showing 60%-79% bilateral carotid disease and that is being followed. She also has history of paroxysmal atrial fibrillation and coronary artery disease. She is on anticoagulation with Coumadin for her atrial fibrillation as well as history of pulmonary emboli. Irma has history of hypertension, hyperlipidemia, diabetes, and continues to smoke about half a pack per day. She has history of sleep apnea which is treated with nasal cannula. She does not tolerate CPAP. She has history of diastolic heart failure and last echocardiogram was performed in May of 2016 showing ejection fraction of 65% with severe left atrial enlargement and moderate-to- severe left ventricular hypertrophy. Irma presented to [facility] with complaints of chest discomfort and palpitations. She stated that she was at home folding some laundry. She had felt well up to that point when all of a sudden, she had some chest discomfort that she thought was heartburn. She took some Maalox, but this did not help her symptoms and then she began to note that her heart rate was feeling very fast and she was more short of breath. She stated it was similar as to fast heart rates with her atrial fibrillation that she has had in the past. She called her daughter who came over and noted that her heart rate was in the 140s and brought her to the emergency room. She was given IV Cardizem which has decreased her heart rate down to the 80s this has just been discontinued right at the time of examination. She was started on oral Cardizem 120 daily. The patient denies any current chest pain, shortness of breath, palpitations, presyncope, or peripheral edema at this time. PAST MEDICAL HISTORY: Cardiac history as outlined above. Diabetes, hyperlipidemia, hypertension, continued tobacco use about a half a pack per day, history of lung cancer, history of end-stage renal disease with renal cancer status post kidney transplant, anemia, arthritis, skin cancer, chronic sinusitis, depression, gastroesophageal reflux disease, chronic headaches, primary hypothyroidism, papillary thyroid carcinoma, restless legs syndrome, thrush, and COPD. PAST SURGICAL HISTORY: Includes renal transplant, knee replacement, partial right nephrectomy prior to transplant, tonsillectomy, right knee arthroscopy x2, bilateral tubal ligation, right thyroid lobectomy, subtotal ADMIT: 10/29/2016 RM/LOC: 420 [facility] MR#: [id number] [address] [id number] [place], [place] [address] [address] Consultation SEX: F AGE: 66 : 1950 parathyroidectomy, history of lobectomy. ALLERGIES: NO KNOWN MEDICATION ALLERGIES. MEDICATIONS: Recently discontinued Cardizem drip at 5 mg an hour. Started on Cardizem 120 CD daily. Home medications that have been continued include: 1. Humalog pump. 2. Guaifenesin 600 b.i.d. 3. Breo 200 inhalation daily. 4. Bumetanide 2 mg p.o. twice daily. 5. Potassium chloride 20 mEq p.o. daily. 6. Coumadin 5 on and Saturdays and 2.5 on other days. 7. Aspirin 81 daily. 8. Atorvastatin 80 mg at bedtime. 9. Caltrate with vitamin D twice daily, 600 mg. 10.DuoNeb 4 times daily. 11.Ferrous sulfate 325 p.o. b.i.d. 12.Labetalol 100 mg p.o. twice daily. 13.Lorazepam 1 mg p.o. twice daily p.r.n. 14.Magnesium oxide 400 mg p.o. daily. 15.CellCept 500 mg twice daily. 16.Pramipexole 0.25 mg at bedtime. 17.ProAir 90 mcg, 2 puffs every 4 hours as needed. 18.Calcitriol 0.5 mcg twice daily. 19.Prograf 3 mg twice daily. 20.Spiriva 18 mcg daily. 21.Viibryd 40 mg daily. 22.Prednisone 20 mg daily until october 30 which would be today decreasing down to 10 mg starting tomorrow for 3 days. FAMILY HISTORY: Positive family history of coronary artery disease, cancer, diabetes. No documented history of stroke. SOCIAL HISTORY: Irma lives at home. Her children are here helping her. She denies any alcohol use. She does drink coffee on a regular basis. Low-fat, low- cholesterol diet. She continues to smoke daily about a half a pack per day and has done so for several years. REVIEW OF SYSTEMS: GENERAL: Denies increased fatigue, recent fever, chills, sweats, or weight changes. EYES: Denies any double vision, or blurry vision currently. THROAT, MOUTH, and EARS: Denies any sinus congestion, sore throat, or hearing loss. RESPIRATORY: History of COPD, recent hospital admissions for upper respiratory infections. Denies any hemoptysis. She does have sleep apnea, but is unable to tolerate CPAP and uses nasal cannula at night with oxygen. GASTROINTESTINAL: Denies any GI bleeding or stomach ulcers. Denies any ADMIT: 10/29/2016 RM/LOC: 420 [facility] MR#: [id number] 26[address] [facility] [address] [place] [phone] IRMA ROSALES [address] [place] [address] Consultation SEX: F AGE: 66 : 1950 gallbladder issues, heartburn, or acid reflux currently. GENITOURINARY: She is status post kidney transplant due to renal cell carcinoma. Denies any troubles with urination or blood in urine. MUSCULOSKELETAL: Denies any musculoskeletal pain or joint pain. Denies any gout. ENDOCRINE: History of hypothyroidism, history of diabetes. HEMATOLOGY: Has chronic anemia, has multiple history of cancer including renal cell, lung, skin, and parathyroid. Denies any current bleeding issues. NEUROLOGIC: Denies any stroke or seizure. Does have history of restless legs syndrome. PSYCHIATRIC: History of depression. Denies anxiety. PHYSICAL EXAMINATION: VITAL SIGNS: Blood pressure 166/69, heart rate 83, respirations 20, temperature 96.9, and oxygenation 95% on O2. SKIN: [place], warm and dry. EYES: Sclerae clear. No xanthelasmas. ENT: Oral mucosa is pink and moist. No jugular venous distention or carotid bruits. HEART: Irregularly irregular. No murmurs, gallops, or rubs. LUNGS: Decreased breath sounds bilaterally. ABDOMEN: Soft and nontender. MUSCULOSKELETAL: Gait is normal. EXTREMITIES: Peripheral pulses palpable. No clubbing, cyanosis or edema. PSYCHIATRIC: Alert and oriented. Mood and affect are appropriate. DIAGNOSTIC DATA: Sodium 142, potassium 4.0, BUN 30, creatinine 2.1, glucose 265, magnesium 1.9. Three sets cardiac enzymes have been performed with elevated troponin of 0.215. She has chronic elevation of troponin. White blood cell count 9.9, hemoglobin 11.9, hematocrit 37.9, and platelets 147. ASSESSMENT AND PLAN: 1. Atrial fibrillation with rapid ventricular response. 2. Hypertension. 3. History of diastolic heart failure. 4. History of bilateral carotid occlusive disease. I will continue recommendation with rate control for now. Increase Cardizem CD to 180 daily. I have reviewed her records to see when she was last normal sinus rhythm. I did find EKG in January of 2016 that did demonstrate sinus ADMIT: 10/29/2016 RM/LOC: 420 [facility] MR#: [id number] [address] [address] IRMA ROSALES [address] [place] [address] Consultation SEX: F AGE: 66 : 1950 rhythm at that time. She will continue on other home medications, but will stop amlodipine and just use Cardizem p.o. for now. She will continue on Coumadin. I would recheck echocardiogram to make sure there are no new changes including wall motion, ejection fraction, or valvular function. Enzymes are mildly elevated which is chronic for her. She has nonobstructive disease in the past. We will need to do stress as an outpatient at some point. Thank you for the consultation. I have read and agree with the documentation that has been completed regarding this visit. By signing this record, I attest that the documentation was completed in my physical presence and is an accurate record of the encounter. Clair Paniagua RN / Live De La Cruz MD / jaspal JOB #: [id number] CC: Scot Campos, Attending Physician Scot Campos, Family Physician
[2016-11-24] MEDS ORDERED: BUMETANIDE2 MG PO (10:04)
[2016-11-24] MEDS ORDERED: ZAROXOLYN5 MG PO (10:06)
[2016-11-24] MEDS ORDERED: OXY IR DPS5 MG PO (10:07)
[2016-11-24] MEDS ORDERED: KLOR-CON M2020 ME1 PO (10:09)
[2016-11-24] MEDS ORDERED: NICODERM CQ1 EAC1 TP (10:11)
[2016-11-24] MEDS ORDERED: ABILIFY5 MG PO (10:11)
[2016-12-15] MEDS ORDERED: LANOXIN DPS0.125 MG PO (09:03)
[2016-12-15] MEDS ORDERED: DIFLUCAN DPS100 MG PO (09:03)
[2017-01-15] MEDS ORDERED: HUMALOG100 UNIT/2 SQ (17:51)
[2017-01-15] MEDS ORDERED: ATIVAN-DPS0.5 MG PO (17:52)
[2017-01-15] MEDS ORDERED: BUMETANIDE2 MG PO (17:52)
[2017-01-15] MEDS ORDERED: NICOTINE PATCH1 EAC1 TD (17:52)
[2017-01-15] MEDS ORDERED: TRANDATE DPS100 MG PO (17:52)
[2017-01-15] MEDS ORDERED: LIPITOR80 MG PO (17:53)
[2017-01-15] MEDS ORDERED: ASPIRIN EC81 MG PO (17:53)
[2017-01-15] MEDS ORDERED: ABILIFY5 MG PO (17:53)
[2017-01-15] MEDS ORDERED: CALTRATE-600 W600 MG PO (17:54)
[2017-01-15] MEDS ORDERED: DILTIAZEM ER360 MG PO (17:54)
[2017-01-15] MEDS ORDERED: LANOXIN DPS0.125 MG PO (17:54)
[2017-01-15] MEDS ORDERED: DUONEB DPS3 ML PO (17:55)
[2017-01-15] MEDS ORDERED: FEOSOL-DPS325 MG PO (17:55)
[2017-01-15] MEDS ORDERED: SLOW-MAG71.5 MG PO (17:56)
[2017-01-15] MEDS ORDERED: BREO ELLIP1 PUFF/DOS IH (17:56)
[2017-01-15] MEDS ORDERED: GUAIFENESIN ER600 MG PO (17:56)
[2017-01-15] MEDS ORDERED: PROAIR HFA8.5 GM IH (17:57)
[2017-01-15] MEDS ORDERED: MIRAPEX DPS0.25 MG PO (17:57)
[2017-01-15] MEDS ORDERED: CELLCEPT500 MG PO (17:57)
[2017-01-15] MEDS ORDERED: TACROLIMUS1 MG PO (17:58)
[2017-01-15] MEDS ORDERED: VIIBRYD40 MG PO (17:58)
[2017-01-15] MEDS ORDERED: ROCALTROL DPS0.5 MCG PO (17:58)
[2017-01-15] MEDS ORDERED: SPIRIVA18 MCG IH (17:58)
[2017-01-15] MEDS ORDERED: KLOR-CON M2020 ME1 PO (17:59)
[2017-01-15] MEDS ORDERED: ZAROXOLYN5 MG PO (17:59)
== END 2016-11-01 13:22 | disposition home or self-care (01) | DRG 309 ==
LOC: ER 14:55 → 4PCU 17:26
PROVIDERS: ADMIT Internal Medicine
DX: I48.0 Paroxysmal atrial fibrillation (principal); I50.32 Chronic diastolic (congestive) heart failure; I13.10 Hypertensive heart and chronic kidney disease without heart failure, with stage 1 through stage 4 chronic kidney disease, or unspecified chronic kidney disease; N18.4 Chronic kidney disease, stage 4 (severe); Z94.0 Kidney transplant status; E11.22 Type 2 diabetes mellitus with diabetic chronic kidney disease; Z99.81 Dependence on supplemental oxygen; I65.23 Occlusion and stenosis of bilateral carotid arteries; J44.9 Chronic obstructive pulmonary disease, unspecified; J32.9 Chronic sinusitis, unspecified; F32.9 Major depressive disorder, single episode, unspecified; I25.10 Atherosclerotic heart disease of native coronary artery without angina pectoris; E78.5 Hyperlipidemia, unspecified; F17.210 Nicotine dependence, cigarettes, uncomplicated; L97.519 Non-pressure chronic ulcer of other part of right foot with unspecified severity; G47.30 Sleep apnea, unspecified; G25.81 Restless legs syndrome; K21.9 Gastro-esophageal reflux disease without esophagitis; E03.9 Hypothyroidism, unspecified; Z85.850 Personal history of malignant neoplasm of thyroid; Z85.118 Personal history of other malignant neoplasm of bronchus and lung; Z85.528 Personal history of other malignant neoplasm of kidney; Z85.828 Personal history of other malignant neoplasm of skin; Z86.711 Personal history of pulmonary embolism; Z90.5 Acquired absence of kidney; Z79.01 Long term (current) use of anticoagulants; Z96.659 Presence of unspecified artificial knee joint; Z96.41 Presence of insulin pump (external) (internal); Z79.82 Long term (current) use of aspirin; Z82.49 Family history of ischemic heart disease and other diseases of the circulatory system; Z09 Encounter for follow-up examination after completed treatment for conditions other than malignant neoplasm

== ENCOUNTER 2016-11-13 12:02 | Emergency (ER) | payer MEDICARE, OTHER ==
[~2016-11-13 12:02] MED LIST changes: +ASPIRIN81 MG PO; +BREO ELLIP1 PUFF/DOS IH; +BUMETANIDE2 MG PO; +CARDIZEM CD360 MG PO; +HUMALOG100 UNIT/1 SQ
--- NOTE | 2016-11-15 13:15 | ER ---
ADMIT: 11/13/2016 RM/LOC: [facility] MR#: [id number] [id number] [place], [place] [address] ARCADIO ROSALES [address] [place] [address] Emergency Room Report SEX: F AGE: 66 : 1950 DATE: 11/13/2016 BRIEF ADDENDUM: Please see my T-sheet for complete review of systems, past medical history, and physical exam. CHIEF COMPLAINT: Shortness of breath. HISTORY OF PRESENT ILLNESS: This is a pleasant 66-year-old female with chronic medical comorbidities, who was transferred via EMS from [facility]. The patient states she woke this morning feeling fine, was able to complete therapy and a wound care visit. She was getting out of the vehicle at [facility], when she had sudden onset of shortness of breath and some chest discomfort. She was seen and evaluated by ARABELLA Maza and found to be hypoxic. She was placed on 2 L of oxygen. EKG was performed showing atrial fibrillation. Upon arrival to the Emergency Department, the patient continues to complain of shortness of breath. She was given a breathing treatment in the department. PAST MEDICAL HISTORY: Significant for atrial fibrillation, CHF, COPD, and depression. She is status post right kidney transplant. COURSE IN THE EMERGENCY ROOM: PHYSICAL EXAMINATION: GENERAL: The patient was seen and examined. She is afebrile in no acute distress. VITAL SIGNS: On admission; blood pressure 143/92, heart rate 121, respirations of 30, temperature 96.2. She is alert and in no acute distress. HEENT: No purulent nasal drainage. Pharynx is nonerythematous. NECK: Soft and supple. No lymphadenopathy. CHEST: Nontender. Has bilateral bibasilar crackles. She has no pleuritic chest pain. She is able to speak in full sentences. HEART: Irregular rate in the 90s to low 100. No murmur, gallop, or rub. Pulses are equal and full. ABDOMEN: Soft and nontender. SKIN: Warm and dry. She has pedal edema, 2+ bilaterally, left greater than right. NEURO: She is alert and oriented x4. She is appropriate and cooperative with exam. LABORATORY DATA: White count 4.6, hemoglobin 10.8, hematocrit 35.2, platelets 151. Chemistry; sodium 141, potassium 3.3, CO2 of 32, BUN 37, glucose 168, creatinine 2.4. CK 45, CK-MB 1.3, troponin 0.115. BNP 5404, INR 2.87. IMAGING: Chest x-ray is stable, no acute changes. EKG shows atrial fibrillation, rate 103. No ST-T or Q-wave abnormalities. She was given a breathing treatment which improved her breathing. I did discuss this patient with Dr. Rojas, who was taking call for Dr. Campos today. He felt comfortable discharging her today with followup with Dr. Campos on Friday. Did encourage her to continue using her breathing treatments and wearing ADMIT: 11/13/2016 RM/LOC: [facility] MR#: [id number] [address] [place], [place] [address] [place] [address] Emergency Room Report SEX: F AGE: 66 : 1950 oxygen as prescribed. IMPRESSION: 1. Chronic obstructive pulmonary disease. 2. Chronic atrial fibrillation. 3. Shortness of breath. DISPOSITION: The patient is to follow up with Dr. Campos as scheduled on Friday. Continue her breathing treatments as prescribed. Continue wearing her oxygen as prescribed. Keep sats greater than 90. Continue all her home medications. Return with any worsening signs or symptoms. Questions are answered to the best of my ability. The patient was discharged home in stable condition. BONNIE Jj / Gilles Mack MD / ajspal JOB #: [id number] CC: Gilles Mack MD, Attending Physician Scot Campos MD, Family Physician
[2016-11-24] MEDS ORDERED: BUMETANIDE2 MG PO (10:04)
[2016-11-24] MEDS ORDERED: ZAROXOLYN5 MG PO (10:06)
[2016-11-24] MEDS ORDERED: OXY IR DPS5 MG PO (10:07)
[2016-11-24] MEDS ORDERED: KLOR-CON M2020 ME1 PO (10:09)
[2016-11-24] MEDS ORDERED: NICODERM CQ1 EAC1 TP (10:11)
[2016-11-24] MEDS ORDERED: ABILIFY5 MG PO (10:11)
[2016-12-15] MEDS ORDERED: LANOXIN DPS0.125 MG PO (09:03)
[2016-12-15] MEDS ORDERED: DIFLUCAN DPS100 MG PO (09:03)
[2017-01-15] MEDS ORDERED: HUMALOG100 UNIT/2 SQ (17:51)
[2017-01-15] MEDS ORDERED: ATIVAN-DPS0.5 MG PO (17:52)
[2017-01-15] MEDS ORDERED: BUMETANIDE2 MG PO (17:52)
[2017-01-15] MEDS ORDERED: TRANDATE DPS100 MG PO (17:52)
[2017-01-15] MEDS ORDERED: NICOTINE PATCH1 EAC1 TD (17:52)
[2017-01-15] MEDS ORDERED: LIPITOR80 MG PO (17:53)
[2017-01-15] MEDS ORDERED: ASPIRIN EC81 MG PO (17:53)
[2017-01-15] MEDS ORDERED: ABILIFY5 MG PO (17:53)
[2017-01-15] MEDS ORDERED: DILTIAZEM ER360 MG PO (17:54)
[2017-01-15] MEDS ORDERED: LANOXIN DPS0.125 MG PO (17:54)
[2017-01-15] MEDS ORDERED: CALTRATE-600 W600 MG PO (17:54)
[2017-01-15] MEDS ORDERED: DUONEB DPS3 ML PO (17:55)
[2017-01-15] MEDS ORDERED: FEOSOL-DPS325 MG PO (17:55)
[2017-01-15] MEDS ORDERED: GUAIFENESIN ER600 MG PO (17:56)
[2017-01-15] MEDS ORDERED: SLOW-MAG71.5 MG PO (17:56)
[2017-01-15] MEDS ORDERED: BREO ELLIP1 PUFF/DOS IH (17:56)
[2017-01-15] MEDS ORDERED: CELLCEPT500 MG PO (17:57)
[2017-01-15] MEDS ORDERED: PROAIR HFA8.5 GM IH (17:57)
[2017-01-15] MEDS ORDERED: MIRAPEX DPS0.25 MG PO (17:57)
[2017-01-15] MEDS ORDERED: TACROLIMUS1 MG PO (17:58)
[2017-01-15] MEDS ORDERED: SPIRIVA18 MCG IH (17:58)
[2017-01-15] MEDS ORDERED: VIIBRYD40 MG PO (17:58)
[2017-01-15] MEDS ORDERED: ROCALTROL DPS0.5 MCG PO (17:58)
[2017-01-15] MEDS ORDERED: ZAROXOLYN5 MG PO (17:59)
[2017-01-15] MEDS ORDERED: KLOR-CON M2020 ME1 PO (17:59)
== END 2016-11-13 14:00 | disposition home or self-care (01) ==
LOC: ER 12:02
DX: J44.9 Chronic obstructive pulmonary disease, unspecified (principal); I48.2 Chronic atrial fibrillation; I50.9 Heart failure, unspecified; F32.9 Major depressive disorder, single episode, unspecified; Z79.01 Long term (current) use of anticoagulants; Z88.8 Allergy status to other drugs, medicaments and biological substances

== ENCOUNTER 2016-11-17 20:28 | Inpatient (IN) | payer MEDICARE, OTHER ==
[~2016-11-17] VITALS: Ht 170.2 cm; Wt 89.0 kg
--- NOTE | 2016-11-20 07:25 | CO ---
ADMIT: 11/17/2016 RM/LOC: 304 [facility] MR#: [id number] [facility]#: [id number] [address] [address] ARCADIO ROSALES [address] [place] [address] Consultation SEX: F AGE: 66 : 1950 DATE OF CONSULTATION: 11/19/2016 ATTENDING PHYSICIAN: Scot Campos CONSULTING PHYSICIAN: Frandy Fernández MD Ms. Rosales is a pleasant, unfortunate, and fairly complex 66-year-old white female, with multiple medical problems, including diabetes mellitus with end- stage disease including diabetic nephropathy. She has had previous single kidney transplant, I believe in 2010. She has chronic kidney disease stage 4. She also has history of chronic obstructive lung disease and previous right upper lobe non-small cell lung cancer (stage I), has undergone previous right upper lobe lobectomy by Dr. Shelton Lynch. She was admitted to the hospital on 11/17/2016, after she presented with increasing shortness of breath. She came in to the Emergency Department stating that she has been extremely short of breath, having some cough with minimal phlegm and mucus. Noted to have acute atrial fibrillation with rapid ventricular rate. She was felt to be in a bit of congestive heart failure. She was placed on BiPAP, stabilized in the Emergency Department, and then admitted to the ICU. She continues to have problems with hypoxemia requiring BiPAP, and was seen in consultation. Currently is comfortable on BiPAP. She is awake, alert, oriented, able to answer questions appropriately. Daughter is with her, and also provides the majority of the information. PAST MEDICAL HISTORY: Significant for chronic kidney disease secondary to diabetes mellitus. She has had previous kidney transplant from her daughter, I believe in 2010. She has history of hypothyroidism, congestive heart failure, COPD, and previous right upper lobe non-small cell lung cancer with right upper lobe lobectomy. She has also had previous right knee replacement. SOCIAL HISTORY: She is a smoker, smoking still about a half pack of cigarettes a day. She is . Lives at home. Her daughter is here and helps take care of her. FAMILY HISTORY: Otherwise, noncontributory. ALLERGIES: SHE HAS NO LISTED MEDICAL ALLERGIES. HOME MEDICATIONS: Include: 1. Insulin. 2. She is on atorvastatin 80 mg daily. 3. Aspirin 81 mg daily. ADMIT: 11/17/2016 RM/LOC: 304 [facility] MR#: [id number] [address] [address] [facility] [place] [address] [place] [address] Consultation SEX: F AGE: 66 : 1950 4. Bumex 2 mg b.i.d. 5. Calcitriol 0.5 mcg Friday, Friday, and Friday. 6. Cardizem CD 360 mg daily. 7. Ferrous sulfate 325 mg daily. 8. Breo Ellipta 200/25 daily. 9. Mucinex 600 mg twice a day. 10.Labetalol 150 mg b.i.d. 11.Lorazepam 1 mg b.i.d. 12.Zaroxolyn 5 mg p.r.n. 13.She is on CellCept 500 mg b.i.d. 14.Oxycodone p.r.n. 15.Potassium chloride 20 mEq daily. 16.Spiriva 18 mcg capsule daily. 17.Recently placed on prednisone and Levaquin. Also Prograf 3 mg b.i.d. REVIEW OF SYSTEMS: As above. All organ systems reviewed, significant positives and negatives discussed above. Additionally, on discussing with her daughter, she does take nebulizer treatments. However, she has not been using her Breo Ellipta or Spiriva on a regular basis. PHYSICAL EXAMINATION: VITAL SIGNS: Currently afebrile, temperature of 98.1, blood pressure 115/72, pulse 120, oxygen saturation 97% on BiPAP. Weight was 195 pounds and this is up almost 10 pounds from her last visit earlier this month. GENERAL: This is a well-developed, well-nourished, obese white female, in [id number] amount of respiratory discomfort. HEENT: Shows head to be normocephalic, atraumatic. Pupils equal and reactive. Posterior hypopharynx is clear of acute exudates. NECK: Supple without adenopathy. LUNGS: Revealed tachypnea. Bilateral wheezes centrally located, with some central rhonchi. HEART: Tachycardic. Irregular. ABDOMEN: Obese, soft, and mildly distended with hypoactive bowel sounds. No guarding or rigidity noted. No masses palpable. EXTREMITIES: Showed chronic lower extremity edema. She also has some stasis changes with dressing over her right great toe. Recently diagnosed with pressure ulcer there. LABORATORY AND X-RAY DATA: Lab and x-rays reviewed. Most significantly, CT scan of her chest shows cardiomegaly with small bilateral pleural effusions, some atelectasis in the lung bases and some interstitial prominence with some ground-glass opacities mainly in the left upper lobe, suggestive of either an atypical infection or volume overload. ASSESSMENT: 1. She has acute on chronic hypoxic and hypercapnic respiratory failure. ADMIT: 11/17/2016 RM/LOC: [address] [place] [address] MR#: [id number] [address] [place] [id number] [place], [place] [address] [address] [place] [address] Consultation SEX: F AGE: 66 : 1950 2. She has acute exacerbation of her chronic obstructive pulmonary disease. 3. She has volume overload. 4. She has chronic kidney disease stage 4. 5. She has acute on chronic congestive heart failure. 6. She has atrial fibrillation with rapid ventricular rate. 7. She has diabetes mellitus type 2, poorly controlled. 8. She has history of chronic renal failure stage 4. 9. She has a diabetic foot ulcer on right lower extremity. PLAN: She has been given IV diuresis. She has been started on IV antibiotics. I would stop vancomycin, continue on Maxipime. I am going to check a CRP, procalcitonin level. This may not represent infection, but may represent volume overload. Regarding her COPD, we will reintroduce her Breo Ellipta and Spiriva. She is on IV steroids which I would continue with this point. Continue BiPAP at night and p.r.n. during the daytime. We will continue to follow here with you and further recommendations to follow evaluation of response to treatments and therapies. Frandy Fernández MD/ jaspal JOB #: [id number] CC: Scot Campos, Attending Physician Scot Campos, Family Physician
--- NOTE | 2016-11-24 01:09 | ER ---
ADMIT: 11/17/2016 RM/LOC: 304 [facility] MR#: [id number] [id number] [place], [place] [address] ARCADIO ROSALES [address] [place] [address] Emergency Room Report SEX: F AGE: 66 : 1950 DATE: 11/17/2016 ADDENDUM: See T-sheet for complete H and P. HISTORY OF PRESENT ILLNESS: A 66-year-old female with multiple medical problems including paroxysmal atrial fibrillation, CHF, insulin-dependent diabetes, severe COPD, who presents to the emergency department complaining of progressive shortness of breath. She was actually seen in the ER for this last week, started on prednisone and then followed up with her regular physician a couple of days later. She is now here with progressively worsening shortness of breath for the majority of the day today. She does use albuterol which she states she has been using as needed today for total of 4 doses. She has been taking her prednisone. She is also on Levaquin she was prescribed. She notes that she is not having any chest pain. Does not feel like her heart is racing. PHYSICAL EXAMINATION: On physical exam, she was hypoxic with her sats 74% on room air, but not tachycardic and she is not in atrial fibrillation. LABORATORY AND X-RAY DATA: An EKG was done, which revealed sinus rhythm. We did check an ABG, which shows she is hypoxemic with PO2 of 62, pCO2 of 49, and a pH 7.33 and that was on 6 L of oxygen. Chest x-ray shows what looks like worsening CHF. CBC was unremarkable other than hemoglobin of 10.7. Her glucose was elevated at 668 with a creatinine of 3.4. She does not have DKA at this time. Troponin is 0.107 and it is often elevated for her. Her BNP is 17,527, which is above her baseline. The patient was given DuoNeb in the emergency department. Given Solu-Medrol, and at this point, I do not believe the patient is stable to be discharged home. Actually, we will be sending her to the ICU if her sats drop with any sort of mild exertion whatsoever, and I believe she will eventually require BiPAP to help mobilize the fluid in her lungs. Dr. Campos will be admitting the patient to the ICU and 45 minutes of critical care time was spent on this patient. IMPRESSION: 1. Congestive heart failure. 2. Short of breath. 3. Chronic obstructive pulmonary disease exacerbation. 4. Poorly-controlled diabetes. 5. Hypoxemia. Gilles Mack MD/ modl JOB #: [id number] CC: Scot Campos MD, Attending Physician ADMIT: 11/17/2016 RM/LOC: 304 [facility] MR#: [id number] [address] [place], [place] [id number] [place], [place] [address] [address] [place] [address] Emergency Room Report SEX: F AGE: 66 : 1950 Scot Campos MD, Family Physician
[2016-11-24] MEDS ORDERED: BUMETANIDE2 MG PO (10:04)
[2016-11-24] MEDS ORDERED: ZAROXOLYN5 MG PO (10:06)
[2016-11-24] MEDS ORDERED: OXY IR DPS5 MG PO (10:07)
[2016-11-24] MEDS ORDERED: KLOR-CON M2020 ME1 PO (10:09)
[2016-11-24] MEDS ORDERED: ABILIFY5 MG PO (10:11)
[2016-11-24] MEDS ORDERED: NICODERM CQ1 EAC1 TP (10:11)
--- NOTE | 2016-11-29 16:12 | HP ---
ADMIT: 11/17/2016 RM/LOC: 304 [facility] MR#: [id number] [facility]#: [id number] [address] [address] ARCADIO ROSALES [address] [place] [address] History and Physical SEX: F AGE: 66 : 1950 DATE OF SERVICE: CHIEF COMPLAINT: Shortness of breath. HISTORY OF PRESENT ILLNESS: This 66-year-old female with multiple medical problems, I know her well, most significant of which are heart failure, COPD, and history of kidney transplant secondary to diabetes. She has been struggling with some increased shortness of breath over this last week. She was in the emergency room. I saw her on Friday. She was in the emergency room on Friday, I saw her on Friday, and at that point, her breathing was actually a little bit better. I gave her a breathing treatment in the office. Her oxygen saturations were stable on her usual amount of oxygen, and her wheezing had gone away. Her weights and edema were pretty stable as well. I put her on antibiotics and prednisone burst at that time. She presented late last evening with increased shortness of breath. Over the part of the day, she had used many doses of albuterol which had not been getting better. When she presented to the emergency room, her oxygen saturations were 74% on room, and then on 6 L of oxygen, her PO2 was only 62. Also, her blood sugar was 668 on presentation, and creatinine was up to 3.4. Blood pressures were constantly elevated throughout the emergency room as well. The patient initially refused BiPAP and stated she want a ventilator, ultimately we had a discussion that this is not ultimately good for her, so she did except a BiPAP. She is currently on BiPAP, so history is a little bit limited because of her inability to communicate. PAST MEDICAL HISTORY: Reviewed from her H and P on 09/27/2016. It is reviewed and unchanged. REVIEW OF SYSTEMS: Other complete review of systems obtained and negative except as above. PHYSICAL EXAMINATION: VITAL SIGNS: Temperature 97.6, pulse 75, respirations 26 on 10/5 BiPAP with 6 L. She is 95% on that. Blood pressure 185/43. She is on nitro drip. GENERAL: This is an ill-appearing, 66-year-old, white female. HEENT: Pupils are equal, round, and reactive to light and accommodation. Her extraocular muscles are intact. Her throat is clear but dry. NECK: Supple. Trachea midline. Thyroid not palpable. HEART: Regular rate and rhythm, but distant. LUNGS: Have inspiratory and expiratory wheezes bilaterally. EXTREMITIES: She can move all her extremities equally bilaterally. Lower extremities have just trace pitting edema. SKIN: Exam just shows chronic changes. LABORATORY AND X-RAY DATA: As above. Her x-ray looks like heart failure. Her INR is 2.8. CBC; white count of 6.5, Hemoglobin 9.8, and platelets of 147. Sodium 130, potassium 4.9, chloride 93, bicarb 26, BUN 69, creatinine 3.4. Liver tests are okay. NT-proBNP is 17,500, and troponin 0.107. ADMIT: 11/17/2016 RM/LOC: 304 [facility] MR#: [id number] [facility] [address] [id number] [place], [place] [address]ARCADIO [address] [place] [address] History and Physical SEX: F AGE: 66 : 1950 ASSESSMENT AND PLAN: 1. Acute on chronic hypercarbic and hypoxic respiratory failure. 2. Heart failure with preserved ejection fraction, acute on chronic. 3. Chronic obstructive pulmonary disease with exacerbation and possible pneumonia. We will check a CT to rule out. 4. History of pulmonary embolism and atrial fibrillation, currently anticoagulated adequately. 5. Diabetes type 2, uncontrolled, usually uses insulin pump. 6. Renal transplant. 7. 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 8. Chronic kidney disease, stage IV. 9. Coronary artery disease. 10.Leg cramps. 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 PLAN: We will keep her blood pressure under control to help her heart failure. We will wean nitroglycerin drip as able. We will treat her pain with some morphine. We will do a CT of her chest without contrast to see if she has underlying pneumonia on top of the CHF or just CHF. Follow her ABGs closely as well. She has history of resistant urinary tract infection without symptoms, we are going to go ahead and check the urine at this time as well. Scot Campos MD/ jaspal JOB #: [id number] CC: Scot Campos, Attending Physician Scot Campos, Family Physician
--- NOTE | 2016-12-01 08:54 | HP ---
ADMIT: 11/17/2016 RM/LOC: 304 [facility] MR#: [id number] [address] [place], [place] [address] ARCADIO ROSALES [address] [place] [address] History and Physical SEX: F AGE: 66 : 1950 DATE OF SERVICE: CHIEF COMPLAINT: Shortness of breath. HISTORY OF PRESENT ILLNESS: This 66-year-old female, well known to me with many chronic problems presented with increased shortness of breath. She was also found to have respiratory failure requiring BiPAP, initially she said she did not want the BiPAP, want to be intubated instead. We gave her some Ativan, she tolerated the BiPAP okay, but she had more and more shortness of breath which came out rather quickly over the last day. This will be the third time she has been seen this week, and she was not having that much increased cough or much increase in weight gain or leg swelling. Initially, her blood pressure was quite high, so we were thinking this is more so of heart failure going on. She has some chest pressure when she feels really short of breath. It radiates to her left arm. She has mildly elevated troponin which is pretty usual for her. These symptoms are severe right now, and nothing was making it better or worse since the BiPAP has been helping. Past history, social history, family history reviewed and unchanged from her last admission. MEDICATIONS: Per the admission medication list. REVIEW OF SYSTEMS: Other complete review of systems obtained and negative except as above. She has been noted she also has a diabetic foot wound and having some more leg cramps. PHYSICAL EXAMINATION: VITAL SIGNS: Temp 97.6, pulse 75, respirations 26, blood pressure 185/43, oxygen saturation 95% on 6 L of oxygen bled in the BiPAP 04/03. GENERAL: This is an ill-appearing 66-year-old female. She is on BiPAP not liking it very much, but in no acute distress with that. She is tachypneic. HEENT: Pupils are equal, round, and reactive to light and accommodation. Her extraocular muscles are intact. Her throat is clear but dry. NECK: Supple. Trachea midline. Thyroid not palpable. HEART: Regular rate. LUNGS: Have severe diminished breath sounds bilaterally. She has some end- expiratory wheezes on the left which clear mostly after couple of breaths. ABDOMEN: Mildly protuberant/distended. EXTREMITIES: Lower extremities have trace to 1+ lower extremity edema. She can move all extremities equally bilaterally. LABORATORY AND X-RAY DATA: Again, mildly elevated troponin. X-ray has some chronic changes, but no significant changes I can see. Initial hemoglobin was 10.3 and white count was 8.3. Urinalysis had 144 white cells, 3 red cells, less than 1 squamous, and few leukocyte esterase. Culture is pending. NT- proBNP [place] 97856, and troponin is 0.1. Creatinine of 3.4. Blood sugar was 668. BUN of 69. ADMIT: 11/17/2016 RM/LOC: 304 [facility] MR#: [id number] [facility] [address] [place] [address] History and Physical SEX: F AGE: 66 : 1950 ASSESSMENT AND PLAN: 1. Acute on chronic hypercarbic and hypoxic respiratory failure. 2. Heart failure with preserved ejection fraction which is acute. She has chronic obstructive pulmonary disease with exacerbation. 3. History of PE and anticoagulation. 4. Chronic kidney disease with acute kidney injury. 5. Diabetes, severely uncontrolled. 6. History of renal transplant, on immunosuppressants. 7. Coronary artery disease with elevated troponin, leg cramps, diabetic foot wound. She is admitted to the hospital. We will try to control her blood pressures better and continue diuresis. I will check her chest CT and make sure we are not missing anything. Continue the BiPAP for now to maintain her oxygenation and ventilation. Scot Campos MD/ jaspal JOB #: [id number] CC: Scot Campos MD, Attending Physician Scot Campos MD, Family Physician
--- NOTE | 2016-12-02 07:28 | DS ---
ADMIT: 11/17/2016 RM/LOC: 304 [facility] MR#: [id number] [facility]#: [id number] [address] [address] ARCADIO ROSALES [address] [place] [address] Discharge Summary SEX: F AGE: 66 : 1950 ADMISSION DATE: 11/17/2016 DISCHARGE DATE: 11/23/2016 DISCHARGE DIAGNOSES: 1. Acute on chronic hypercapnic and hypoxic respiratory failure. 2. Heart failure with preserved ejection fraction. 3. Severe COPD (chronic obstructive pulmonary disease) with exacerbation. 4. Atrial fibrillation. 5. Coronary artery disease. 6. History of pulmonary embolus. 7. Chronic anticoagulation. 8. Renal transplant, on chronic immunosuppression. 9. Stage 4 chronic kidney disease. 10.Diabetes mellitus type 2 poorly controlled. 11.Nonadherence to the medical regimen. 12.Anxiety. 13.Right plantar foot wound. 14.Hypokalemia. 15.Tobacco abuse. CONSULTATIONS: 1. Pulmonology. 2. Wound Care. PROCEDURES: None. REASON FOR ADMISSION: A 66-year-old female with multiple medical problems: heart failure, COPD, kidney transplant, and poorly controlled diabetes. Presents to [facility] emergency room on day of admission with complaints of shortness of breath going on over the last week. She was noted in October that make that acute on chronic hypercapnic and hypoxic respiratory failure. She was noted to be having increasing oxygen requirements and to be in heart failure with COPD exacerbation, and she is admitted for further evaluation and treatment. For complete details, please see H and P dictated on day of admission. At the time of admission, patient was placed in an ICU bed. Started on IV steroids, antibiotics and BiPAP due to hypercapnia. Also started on an insulin drip. Blood sugars were brought under a little bit better control, and she was transitioned to a basal regimen as she had not been using her insulin pump. As mentioned, Pulmonology was consulted. She was weaned off the BiPAP. She continued to improve from a respiratory standpoint. Wound Ostomy Care saw the patient. Her steroids were tapered. We continued to have good diuresis. She had been started on antibiotics, and those were tapered. Her vancomycin was stopped, her creatinine slowly improved with diuretics. Pulmonary made some changes to her respiratory regimen. Oxygen requirements were tapered ostomy data hypokalemia. She was mildly hypokalemic during her hospital stay, and she was replaced orally. Throughout her hospital stay as mentioned, she had been transitioned to a subcutaneous insulin regimen. I had a long talk with the patient about diabetes management moving forward, and the patient states she ADMIT: 11/17/2016 RM/LOC: 304 [facility] MR#: [id number] [address] [place] [address] Discharge Summary SEX: F AGE: 66 : 1950 wants to go back to using her home insulin pump and promises to check her blood sugars four times per day. Also does want to quit smoking, and so she was put on a nicotine patch and wants to continue with that. Once again, she continued to do well. She had good diuresis. Ambulated and ate. Was seen by Physical therapy, Occupational Therapy. Her oxygen was weaned, and she did well with Physical Therapy, walking 120-150 feet at least a couple of times per day and was just found to be standby assist. With this improvement, the patient thought she was ready for discharge on 11/23. DISCHARGE MEDICATIONS: Are found on her discharge medication list. We will get her on a little bit of a prednisone taper and we will get her down to 10 mg by the time she sees Dr. Campos. Her INR was a little elevated at 3.3 on the day of discharge, so her Coumadin will be held for 48 hours prior to restarting that, and she will have an INR with Dr. Campos when she sees him in clinic. Otherwise, the remainder of medications are found on her home medication list. She will be restarting her home insulin pump at home with her prior basal insulin rates and using her bolus wizard as prior. DISCHARGE ACTIVITY: As tolerated. She will have a home oxygen assessment prior to going home. Most likely will need it with exertion and nocturnally. FOLLOWUP: She will have follow up with Dr. Campos within the next week and have lab at that visit. Her diet will be a 2 g sodium cardiac ADA diet, and she will call [facility]OL[facility] with any other questions or concerns. Enio Rojas MD/ ania JOB #: [id number] CC: Scot Campos MD, Attending Physician Scot Campos MD, Family Physician
[2016-12-15] MEDS ORDERED: DIFLUCAN DPS100 MG PO (09:03)
[2016-12-15] MEDS ORDERED: LANOXIN DPS0.125 MG PO (09:03)
[2017-01-15] MEDS ORDERED: HUMALOG100 UNIT/2 SQ (17:51)
[2017-01-15] MEDS ORDERED: NICOTINE PATCH1 EAC1 TD (17:52)
[2017-01-15] MEDS ORDERED: TRANDATE DPS100 MG PO (17:52)
[2017-01-15] MEDS ORDERED: ATIVAN-DPS0.5 MG PO (17:52)
[2017-01-15] MEDS ORDERED: BUMETANIDE2 MG PO (17:52)
[2017-01-15] MEDS ORDERED: ABILIFY5 MG PO (17:53)
[2017-01-15] MEDS ORDERED: LIPITOR80 MG PO (17:53)
[2017-01-15] MEDS ORDERED: ASPIRIN EC81 MG PO (17:53)
[2017-01-15] MEDS ORDERED: DILTIAZEM ER360 MG PO (17:54)
[2017-01-15] MEDS ORDERED: LANOXIN DPS0.125 MG PO (17:54)
[2017-01-15] MEDS ORDERED: CALTRATE-600 W600 MG PO (17:54)
[2017-01-15] MEDS ORDERED: FEOSOL-DPS325 MG PO (17:55)
[2017-01-15] MEDS ORDERED: DUONEB DPS3 ML PO (17:55)
[2017-01-15] MEDS ORDERED: SLOW-MAG71.5 MG PO (17:56)
[2017-01-15] MEDS ORDERED: GUAIFENESIN ER600 MG PO (17:56)
[2017-01-15] MEDS ORDERED: BREO ELLIP1 PUFF/DOS IH (17:56)
[2017-01-15] MEDS ORDERED: MIRAPEX DPS0.25 MG PO (17:57)
[2017-01-15] MEDS ORDERED: PROAIR HFA8.5 GM IH (17:57)
[2017-01-15] MEDS ORDERED: CELLCEPT500 MG PO (17:57)
[2017-01-15] MEDS ORDERED: TACROLIMUS1 MG PO (17:58)
[2017-01-15] MEDS ORDERED: SPIRIVA18 MCG IH (17:58)
[2017-01-15] MEDS ORDERED: ROCALTROL DPS0.5 MCG PO (17:58)
[2017-01-15] MEDS ORDERED: VIIBRYD40 MG PO (17:58)
[2017-01-15] MEDS ORDERED: KLOR-CON M2020 ME1 PO (17:59)
[2017-01-15] MEDS ORDERED: ZAROXOLYN5 MG PO (17:59)
== END 2016-11-23 12:05 | disposition home or self-care (01) | DRG 291 ==
LOC: ER 20:28 → 3ICU 22:20
PROVIDERS: ADMIT Internal Medicine
DX: I50.33 Acute on chronic diastolic (congestive) heart failure (principal); J96.22 Acute and chronic respiratory failure with hypercapnia; J96.21 Acute and chronic respiratory failure with hypoxia; N17.9 Acute kidney failure, unspecified; J44.1 Chronic obstructive pulmonary disease with (acute) exacerbation; N18.4 Chronic kidney disease, stage 4 (severe); Z94.0 Kidney transplant status; I25.10 Atherosclerotic heart disease of native coronary artery without angina pectoris; F17.210 Nicotine dependence, cigarettes, uncomplicated; E03.9 Hypothyroidism, unspecified; I48.0 Paroxysmal atrial fibrillation; E11.22 Type 2 diabetes mellitus with diabetic chronic kidney disease; E87.6 Hypokalemia; F41.9 Anxiety disorder, unspecified; E11.621 Type 2 diabetes mellitus with foot ulcer; L97.519 Non-pressure chronic ulcer of other part of right foot with unspecified severity; E11.65 Type 2 diabetes mellitus with hyperglycemia; Z96.41 Presence of insulin pump (external) (internal); Z86.711 Personal history of pulmonary embolism; Z85.118 Personal history of other malignant neoplasm of bronchus and lung; Z96.651 Presence of right artificial knee joint; Z79.82 Long term (current) use of aspirin; Z91.19 Patient's noncompliance with other medical treatment and regimen

== ENCOUNTER → 2016-12-04 | Outpatient (CLI) | payer MEDICARE, OTHER ==
[~2016-12-04] MED LIST changes: +ABILIFY5 MG PO; +DIFLUCAN DPS100 MG PO; +DILTIAZEM ER360 MG PO; +DUONEB DPS3 ML PO; +LANOXIN DPS0.125 MG PO; +NICODERM CQ1 EAC1 TP; +OXY IR DPS5 MG PO; +SLOW-MAG71.5 MG PO; +ZAROXOLYN5 MG PO
== END | disposition home or self-care (01) ==
LOC: RAD.S 18:19
DX: L97.929 Non-pressure chronic ulcer of unspecified part of left lower leg with unspecified severity (principal); L97.919 Non-pressure chronic ulcer of unspecified part of right lower leg with unspecified severity; M79.605 Pain in left leg; M79.604 Pain in right leg; I70.0 Atherosclerosis of aorta

== ENCOUNTER 2016-12-05 23:26 | Emergency (ER) | payer MEDICARE, OTHER ==
[~2016-12-05 23:26] MED LIST changes: -DIFLUCAN DPS100 MG PO; -DILTIAZEM ER360 MG PO; -DUONEB DPS3 ML PO; -LANOXIN DPS0.125 MG PO; -SLOW-MAG71.5 MG PO
--- NOTE | 2016-12-06 02:42 | ER ---
ADMIT: 12/05/2016 RM/LOC: [facility] MR#: [id number] [address] [address] ARCADIO ROSALES [address] [place] [address] Emergency Room Report SEX: F AGE: 66 : 1950 DATE: 12/05/2016 TIME: 2326 hours. Please refer to my T-sheet for complete H and P. HISTORY OF PRESENT ILLNESS: Briefly, the patient is a 66-year-old who comes in with feet swelling and thought her sats were low. Her feet had been swollen for several days. She had an ultrasound yesterday done by Dr. Campos. She has an appointment tomorrow with him, but she noticed it looks like her oxygen sats were lower than usual when she checked them. She did not feel short of breath and her feet had been hurting for several days. No other changes besides that. She came in for evaluation. PHYSICAL EXAMINATION: VITAL SIGNS: Blood pressure 116/51, pulse 66, respirations 24, temp 98.2, sat 94-95% on 3 L. GENERAL: No acute distress. HEENT: Grossly normal. LUNGS: Slightly coarse, moving adequate air. ABDOMEN: Soft. EXTREMITIES: She has trace edema in the lower extremities. Her right leg does hurt a little worse than her left, but there is no evidence of infection. There is an ulcer. EMERGENCY DEPARTMENT COURSE: I reviewed her arterial ultrasound of her right lower extremity. It did reveal significant peripheral vascular disease. Her sats are 97-98% on her oxygen. She was feeling better. I gave her the results. I had a long discussion with her. Since she has an appointment in the morning and most of these are chronic issues right now, I am going to let her go home. ASSESSMENT: 1. Low sats resolved. Hard to tell what they were at home. However, she seems to be normal sats here on her oxygen. 2. Peripheral vascular disease. 3. Chronic obstructive pulmonary disease. PLAN: Keep her appointment tomorrow. Return if worse. William Harvey MD/ jaspal JOB #: [id number] CC: William Harvey MD, Attending Physician Scot Campos MD, Family Physician
[2016-12-15] MEDS ORDERED: DIFLUCAN DPS100 MG PO (09:03)
[2016-12-15] MEDS ORDERED: LANOXIN DPS0.125 MG PO (09:03)
[2017-01-15] MEDS ORDERED: HUMALOG100 UNIT/2 SQ (17:51)
[2017-01-15] MEDS ORDERED: BUMETANIDE2 MG PO (17:52)
[2017-01-15] MEDS ORDERED: ATIVAN-DPS0.5 MG PO (17:52)
[2017-01-15] MEDS ORDERED: TRANDATE DPS100 MG PO (17:52)
[2017-01-15] MEDS ORDERED: NICOTINE PATCH1 EAC1 TD (17:52)
[2017-01-15] MEDS ORDERED: LIPITOR80 MG PO (17:53)
[2017-01-15] MEDS ORDERED: ASPIRIN EC81 MG PO (17:53)
[2017-01-15] MEDS ORDERED: ABILIFY5 MG PO (17:53)
[2017-01-15] MEDS ORDERED: DILTIAZEM ER360 MG PO (17:54)
[2017-01-15] MEDS ORDERED: CALTRATE-600 W600 MG PO (17:54)
[2017-01-15] MEDS ORDERED: LANOXIN DPS0.125 MG PO (17:54)
[2017-01-15] MEDS ORDERED: FEOSOL-DPS325 MG PO (17:55)
[2017-01-15] MEDS ORDERED: DUONEB DPS3 ML PO (17:55)
[2017-01-15] MEDS ORDERED: BREO ELLIP1 PUFF/DOS IH (17:56)
[2017-01-15] MEDS ORDERED: SLOW-MAG71.5 MG PO (17:56)
[2017-01-15] MEDS ORDERED: GUAIFENESIN ER600 MG PO (17:56)
[2017-01-15] MEDS ORDERED: PROAIR HFA8.5 GM IH (17:57)
[2017-01-15] MEDS ORDERED: CELLCEPT500 MG PO (17:57)
[2017-01-15] MEDS ORDERED: MIRAPEX DPS0.25 MG PO (17:57)
[2017-01-15] MEDS ORDERED: SPIRIVA18 MCG IH (17:58)
[2017-01-15] MEDS ORDERED: ROCALTROL DPS0.5 MCG PO (17:58)
[2017-01-15] MEDS ORDERED: VIIBRYD40 MG PO (17:58)
[2017-01-15] MEDS ORDERED: TACROLIMUS1 MG PO (17:58)
[2017-01-15] MEDS ORDERED: ZAROXOLYN5 MG PO (17:59)
[2017-01-15] MEDS ORDERED: KLOR-CON M2020 ME1 PO (17:59)
== END 2016-12-06 01:13 | disposition home or self-care (01) ==
LOC: ER 23:26
DX: I73.9 Peripheral vascular disease, unspecified (principal); J44.9 Chronic obstructive pulmonary disease, unspecified; I48.91 Unspecified atrial fibrillation; E11.9 Type 2 diabetes mellitus without complications; I11.0 Hypertensive heart disease with heart failure; I50.9 Heart failure, unspecified; Z98.890 Other specified postprocedural states; Z87.891 Personal history of nicotine dependence; Z88.6 Allergy status to analgesic agent; Z88.5 Allergy status to narcotic agent; Z79.82 Long term (current) use of aspirin; Z79.899 Other long term (current) drug therapy; Z79.4 Long term (current) use of insulin; Z79.01 Long term (current) use of anticoagulants

== ENCOUNTER → 2016-12-06 | Outpatient (CLI) | payer MEDICARE, OTHER ==
[~2016-12-06] MED LIST changes: +DIFLUCAN DPS100 MG PO; +DILTIAZEM ER360 MG PO; +DUONEB DPS3 ML PO; +LANOXIN DPS0.125 MG PO; +SLOW-MAG71.5 MG PO
== END | disposition home or self-care (01) ==
LOC: RAD.S 12:50
DX: J44.9 Chronic obstructive pulmonary disease, unspecified (principal); I51.7 Cardiomegaly; I25.10 Atherosclerotic heart disease of native coronary artery without angina pectoris; R91.1 Solitary pulmonary nodule; J90 Pleural effusion, not elsewhere classified; J98.4 Other disorders of lung

== ENCOUNTER 2016-12-11 13:49 | Inpatient (IN) | payer MEDICARE, OTHER ==
[~2016-12-11] VITALS: Ht 170.2 cm; Wt 82.4 kg
--- NOTE | ~2016-12-11 | ECH ---
Transthoracic Echocardiography Report (TTE) Demographics Patient Name ARCADIO ROSALES Date of Study 12/12/2016 Patient Number [id number] Visit Number [id number] Date of 1950 Room Number 420 Accession Number [id number] Gender Female Age 66 year(s) Referring Andres Snowden Parenting Skills Instructor Amanda Duvall [facility] Physician Physician Interpreting Jorden Mantilla MD Subscription Crew Leader Physician Supervising Ordering Physician Andres Snowden MD, MD/P Nurse Stress Power [employer] Conclusions Summary Limited exam for left ventricular and valvular function. The estimated left ventricular ejection fraction is 60-65%. Severe concentric left ventricular hypertrophy. Diastolic assessment reveals normal relaxation. The left atrium is moderately dilated by LA volume index measurement. The right atrium is mild to moderately dilated. Moderate mitral valve stenosis. The mean gradient is 5.86 mmHg. Mild mitral regurgitation by color Doppler. Mild tricuspid regurgitation by color Doppler. There is mild pulmonary hypertension. The pulmonary pressure (RVSP) is 37 mmHg. Trivial pulmonic valve regurgitation by color Doppler. Small posterior pericardial effusion. Procedure Type of Study TTE procedure:Echo Limited SF. Procedure Date Date: 12/12/2016 Start: 10:33 AM Technical Quality: Adequate visualization Indications:Congestive heart failure and paroxysmal a-fib. Appropriate Use Criteria: 9 Height: 67 inches Weight: 199 pounds BSA: 2.02 m Rhythm: NSR HR: 74 bpm BP: 166/64 mmHg M-Mode/2D Measurements LV Diastolic Dimension: 4.94 cm LV Systolic Dimension: 2.9 cm LV Septum Diastolic: 1.64 cm LV PW Diastolic: 1.68 cm AO Root Dimension: 2.2 cm Cardiac Output: 5.16 l/min LA Dimension: 4.57 cm Cardiac Index: 2.55 l/min*m RV Diastolic Dimension: 3.17 cm LA volume index: 44 ml/m LVOT: 1.89 cm LVOT VTI: 24.87 cm RV Base: 4.45 cm LV Stroke volume: 69.74 ml RV Mid: 3.22 cm LV Stroke volume index: 34.52 ml/m RV Length: 7.23 cm TAPSE: 1.7 cm TDI-S': 15 cm/s Doppler Measurements AV Peak Velocity: 1.7 m/s MV Peak E-Wave: 2.07 m/s AV Peak Gradient: 11.56 mmHg MV Peak A-Wave: 1.24 m/s AV Mean Gradient: 6.33 mmHg MV E/A Ratio: 1.67 LVOT Peak Velocity: 1.11 m/s MV P1/2t: 84.4 msec AV Area (Continuity):1.91 cm TR Velocity:2.85 m/s MV Deceleration Time: 291.1 msec TR Gradient:32.53 mmHg MV Area (PHT): 2.61 cm Estimated RAP:5 mmHg PV Peak Velocity: 1.65 m/s Estimated RVSP: 38 mmHg PV Peak Gradient: 10.84 mmHg Estimated PASP: 37.53 mmHg RA Area: 21.18 cm Findings Left Ventricle The left ventricle is normal in size . Severe concentric left ventricular hypertrophy. Diastolic assessment reveals normal relaxation. Right Ventricle Normal right ventricle structure and function. Left Atrium The left atrium is moderately dilated by LA volume index measurement. Right Atrium The right atrium is mild to moderately dilated. Mitral Valve Moderate mitral valve stenosis. The mean gradient is 5.86 mmHg. Mild mitral regurgitation by color Doppler. Aortic Valve The aortic valve is mildly sclerotic. There is no aortic regurgitation by color Doppler. Tricuspid Valve Normal appearing tricuspid valve. Mild tricuspid regurgitation by color Doppler. There is mild pulmonary hypertension. The pulmonary pressure (RVSP) is 37 mmHg. Pulmonic Valve The pulmonic valve is not well visualized. Trivial pulmonic valve regurgitation by color Doppler. Pericardial Effusion Small posterior pericardial effusion. Miscellaneous Visualized portions of the aortic root and ascending aorta appear normal in size. Signature
[~2016-12-11 13:49] MED LIST changes: -DIFLUCAN DPS100 MG PO; -DILTIAZEM ER360 MG PO; -DUONEB DPS3 ML PO; -LANOXIN DPS0.125 MG PO; -SLOW-MAG71.5 MG PO
--- NOTE | 2016-12-13 07:56 | HP ---
ADMIT: 12/11/2016 RM/LOC: 420 [facility] MR#: [id number] [id number] [place], [place] [address] IRMA ROSALES [address] [place] [address] History and Physical SEX: F AGE: 66 : 1950 DATE OF SERVICE: 12/11/2016 HISTORY OF PRESENT ILLNESS: Ms. Rosales is a 66-year-old female with a past medical history significant for COPD, diastolic heart failure, peripheral vascular disease, hypertension, hyperlipidemia, uncontrolled type 2 diabetes, CKD stage 3 with history of kidney transplant, now currently on immunosuppression, history of atrial fibrillation, and history of recent tobacco cessation, who presented to the emergency room with worsening shortness of breath. She was seen in the [facility] on 12/09/2016. At that point in time, she had noticed that she had been more short of breath for approximately 2 days. She had increased her Bumex as well as her metolazone and still continued to have lower extremity edema that was quite severe. She noted that she had an increased sore throat as well as more productive cough. At that point in time, a rapid respiratory viral panel was completed, and she was found to be rhinovirus positive. Previous to this finding, she was discharged home from the clinic on Augmentin and doxycycline. She was instructed to increase her Bumex to 3 mg p.o. b.i.d. as well as take metolazone 5 mg p.o. previous to the morning dose of the Bumex on both Friday and Friday. She was to follow up with Dr. Campos on 12/12/2016. In the interim, Irma states that her shortness of breath has gotten worse. She needed 6 L by nasal cannula this morning and did not feel like she was saturating well. She states that the chest was heavy with a pressure sensation that she attributed to her chest tightness and difficulty with breathing. She was able to start the antibiotics as an outpatient and also had started a prescription for prednisone 40 mg p.o. daily. She was actively using her home O2, but felt that she had not been keeping up. She does tell me that she felt like her lower extremities were less swollen than they had been on Friday and that the metolazone as well as the Bumex were finally helping. Other than her respiratory status, Irma states that she has been doing well. In the Emergency department, she was noted to have a blood pressure of 184/44 with a pulse of 69, and respiratory rate of 35, saturating at 92% on 6 L of nasal cannula. Her temperature was 97.3 Fahrenheit. Initial labs and imaging were completed, and she was admitted for acute hypoxic respiratory failure. She states that she has been eating and drinking less than usual, but has not had any particular difficulty. PAST MEDICAL HISTORY: 1. Peripheral vascular disease. 2. Hypertension. 3. Hyperlipidemia. 4. Chronic diastolic heart failure. 5. COPD. 6. Obstructive sleep apnea. 7. History of PE. 8. Atrial fibrillation. 9. Type 2 diabetes, poorly controlled. 10.Hypothyroidism. 11.CKD, stage 3 with a baseline creatinine of approximately 1.88. 12.History of kidney transplant with chronic immunosuppression secondary to ADMIT: 12/11/2016 RM/LOC: 420 [facility] MR#: [id number] [facility] [address] [address] BOBBYIRMA [address] [place] [address] History and Physical SEX: F AGE: 66 : 1950 the transplant. 13.Depression. 14.Restless legs syndrome. 15.Tobacco abuse with recent cessation. 16.Hypercalcemia. 17.Foot ulcer. HOME MEDICATIONS: Please refer to the current list of medications obtained on admission per doses. Home medications include: 1. DuoNeb. 2. Augmentin. 3. Abilify. 4. Aspirin. 5. Atorvastatin. 6. Bumex. 7. Calcitriol. 8. Caltrate with vitamin D. 9. Digoxin. 10.Diltiazem. 11.Doxycycline. 12.Iron sulfate. 13.Breo inhaler. 14.Mucinex. 15.Humalog insulin pump. 16.Ativan. 17.Labetalol. 18.Magnesium oxide. 19.Metolazone. 20.CellCept. 21.Oxycodone. 22.Potassium chloride supplement. 23.Pramipexole. 24.Prednisone. 25.ProAir. 26.Spiriva. 27.Tacrolimus. 28.Viibryd. 29.Warfarin. ALLERGIES: INCLUDE ALLERGY TO NORCO. FAMILY HISTORY: Mother and father both passed from complications of smoking. She has 4 sisters, who have diabetes. No other medical problems within the family. SOCIAL HISTORY: Tobacco use. She is a former smoker and quit on her last hospital admission which was from November 17 to November 23. She denies any alcohol use. She denies any drug use. 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 She lives in [place] with her granddaughter. She enjoys camping in her spare time. REVIEW OF SYSTEMS: A complete review of systems was completed for this encounter. It is negative other than noted above. PHYSICAL EXAMINATION: VITAL SIGNS: On the floor, her temperature is 97.4 Fahrenheit, pulse of 63, respiratory rate of 22, blood pressure 148/59, and she is saturating at 92% on 6 L nasal cannula. GENERAL: She appears to be in moderate respiratory distress. Otherwise, she is alert and oriented to person, place, time, and situation. HEENT: Normocephalic, atraumatic. Hearing intact to conversation. Her extraocular eye movements are intact. She does not have any scleral icterus or sclerae injection. She has normal pink conjunctivae. Her nose is midline. She does have moist mucous membranes. LUNGS: She has significantly decreased breath sounds throughout. She does have some intermittent wheezing in her upper lobes with crackles bilaterally at the bases. She is currently on 6 L nasal cannula. HEART: She has a regular rate and rhythm at this point in time. No murmurs were detected. ABDOMEN: Soft, but distended with adiposity as well as fluid. She does not have . EXTREMITIES: She does have some trace pitting edema bilaterally in her feet. This is improved from what it was when she was in the clinic on Friday. Pulses are intact. NEUROLOGIC: Grossly normal. PSYCH: Normal. LABS AND IMAGING: In the Emergency Department, she was noted to have a white count of 8.7 with normal differential for the most part. She did have 1% banded neutrophils. Her hemoglobin was 9.4 with an MCV of 87. Her platelets were 162. Her CMP was significant for a sodium of 128, bicarb of 28, glucose of 628, creatinine of 3.4, albumin of 2.3. Her LFTs were fairly unremarkable. She was noted to have an INR of 2.65 in the setting of chronic warfarin use. An ABG was performed in the ED and was 7.4/46/71/28. A chest x-ray was also performed in the Emergency Department and demonstrated cardiomegaly with interstitial pulmonary edema. There was right-sided pleural effusion that had been more prominent than in the past and the amount of pulmonary edema in the left lung was also thought to have been increased from the last chest x-ray which was obtained on November 17, 2016. ASSESSMENT AND PLAN: Ms. Irma Rosales is a 66-year-old female with a past medical history significant for chronic obstructive pulmonary disease, obstructive sleep apnea, history of pulmonary embolus, peripheral vascular disease, heart failure with preserved ejection fraction, hypertension, hyperlipidemia, type 2 diabetes with poor control; chronic kidney disease, stage 3 with transplanted kidney on chronic immunosuppression, and atrial fibrillation, who presents with worsening shortness of breath. ADMIT: 12/11/2016 RM/LOC: 420 [facility] MR#: [id number] [address] [address] IRMA ROSALES [address] [address] History and Physical SEX: F AGE: 66 : 1950 1. Acute hypoxic respiratory failure. At this point in time, I believe that it is probably multifactorial. Suspect that she has some decompensation secondary to her diagnosis of a rhinovirus. She did not appear to have any other concomitant infection. Her white count is normal at this point in time. She does not have increased sputum production or increased sputum purulence. Also suspect that there is a component of acute-on- chronic diastolic heart failure given her chest x-ray as well as the edema that she has in her lower extremities. At this point in time, we will hold off on antibiotics, but obtain a procalcitonin. If the procalcitonin is elevated, then we will consider starting her on antibiotics. We will continue supportive therapy including Solu-Medrol 60 mg IV q.6 hours, DuoNeb q.4 hours, and EzPAP. We will also diurese her with Bumex 2 mg IV once to be preceded with metolazone 5 mg orally once 30 minutes before the Bumex. We will obtain echocardiogram in the morning to further assess her ejection fraction as well as the valves of her heart and the overall structure and function of the heart as well. We will repeat a CBC as well as a CMP in the morning. We will also obtain a digoxin level in the morning. Otherwise, we will continue her home medications for her chronic obstructive pulmonary disease and her heart failure. We will place her on a 2 g sodium-restricted diet. 2. Possible exacerbation of her chronic diastolic heart failure. Please see the above section for the assessment and plan. 3. [id number]-mwmvhhm kidney disease. It appears that her baseline creatinine has been as low as 1.88. On admission today, her creatinine is 3.4. She does have a history of renal transplant that was performed at the [facility]. Her transplant utility bagger is Valente Holland. We will be in contact with him tomorrow. In the interim, we will obtain a UA to assess for infection as well as an ultrasound with Doppler of that kidney. We will also obtain Prograf as well as CellCept levels. We will renally dose all antibiotics and medications given her renal function. There is some concern that this maybe a cardiorenal type of picture, so we will continue diuresis at this point in time, but recheck a BMP in the morning and if it is grossly elevated, we will need to further assess need for fluid removal without use of the transplanted kidney. This may require transfer of the patient to a medical center that has a capacity to initiate acute dialysis. 4. Hyperglycemia in the setting of type 2 diabetes that has been fairly uncontrolled. Suspect that her insulin pump has not been adjusted to account for the steroids that she recently started taking. We will place her on an insulin drip and titrate as needed. She will be on an ADA diet as well. 5. Pseudohyponatremia. The patient has a sodium of 128 here on admission, but that is in the setting of a serum glucose of 628. On correction, her sodium corrects to 136 to 141. Suspect that this will further correct with correction of her hyperglycemia. 6. Normocytic anemia. Suspect that this is anemia of chronic disease. There is no evidence of acute blood loss at this point in time. We will continue her on her iron supplement. The transfusion threshold for her ADMIT: 12/11/2016 RM/LOC: 420 [facility] MR#: [id number] [address] [address] IMRA ROSALES [address] [place] [address] History and Physical SEX: F AGE: 66 : 1950 is 7 at this point in time as we do not have any indication that she is having an acute coronary syndrome. 7. Atrial fibrillation with chronic anticoagulation. The goal INR for her is between 2 and 3. She recently was supratherapeutic and has been holding her warfarin for the last 4 days. We will have her resume her home warfarin given that her INR is currently 2.65. 8. All other chronic medical conditions. We will continue home medications for these conditions and will renally dose them given her acute kidney injury. 9. Code status. The patient is full code at this point in time. She is going to further discuss this with her family. We did have a discussion about the likelihood of her being fully resuscitated. Given her multiple comorbidities, there is a concern that if she was resuscitated, that it might not be feasible for her to have the breathing tube removed. The patient says that this is something that her family will further discuss. 10.DVT prophylaxis. Continue her home warfarin. 11.Respiratory prophylaxis. We will provide her with an incentive spirometer. Fiordaliza Dunbar MD Resident / Enio Rojas MD / jaspal JOB #: [id number] CC: Scot Campos, Attending Physician Scot Campos, Family Physician
[2016-12-15] MEDS ORDERED: DIFLUCAN DPS100 MG PO (09:03)
[2016-12-15] MEDS ORDERED: LANOXIN DPS0.125 MG PO (09:03)
--- NOTE | 2016-12-20 08:02 | CO ---
ADMIT: 12/11/2016 RM/LOC: 420 [facility] MR#: [id number] [address] [address] ARCADIO ROSALES [address] [place] [address] Consultation SEX: F AGE: 66 : 1950 DATE OF CONSULTATION: 12/12/2016 ATTENDING PHYSICIAN: Scot Campos CONSULTING PHYSICIAN: Vasquez Spain DPM CHIEF COMPLAINT: Right foot ulceration. HISTORY OF PRESENT ILLNESS: This is a diabetic female who was seen in my office for ulceration of the right foot. The patient was recently admitted through [facility] for respiratory failure and several of the other issues. The patient had shortness of breath and presented. The patient has had an MRI and arterial imaging set up as an outpatient for management of the ulceration, but was unable to have this performed before admission. The patient has been on oral antibiotics including Augmentin and doxycycline, but is currently on IV antibiotics. During admission, the patient denies any foot pain. Overall, no change from her last visit regarding her foot. PAST MEDICAL HISTORY: Peripheral vascular disease, peripheral neuropathy, diabetes, hypertension, hyperlipidemia, chronic heart failure, COPD, sleep apnea, atrial fibrillation, hypothyroidism, post renal transplant and chronic kidney disease, history of pulmonary embolism, depression, restless legs syndrome, tobacco abuse with recent cessation, and hypercalcemia. PAST SURGICAL HISTORY: Renal transplant. SOCIAL HISTORY: The patient's caregiver is her daughter. Former tobacco abuse. Denies alcohol abuse. The patient is retired. FAMILY HISTORY: Noncontributory. MEDICATIONS: Please see the list for current medications. ALLERGIES: NORCO. REVIEW OF SYSTEMS: Negative except for stated above. PHYSICAL EXAMINATION: VITAL SIGNS: Temp 97.2, pulse of 86, respirations 16, blood pressure is 124/47, O2 is 93% on oxygen. VASCULAR: DP and PT pulses are not palpable bilaterally. Capillary refill time is approximately 4 to 5 seconds bilaterally. Absent hair growth bilaterally. Chronic nonpitting edema to the feet and ankles bilaterally. NEURO: Light touch sensation is absent to the feet bilaterally. DERM: The ulceration today measures 1.9 x 1.0 x 0.9 cm. There is a granular wound base with some fibrotic slough. No surrounding erythema or increased warmth. Some callus formation at the wound edge, but overall has a rolled wound border. Muscular prominence of the second metatarsophalangeal joint bilaterally. Bunion deformity bilaterally. ADMIT: 12/11/2016 RM/LOC: 420 [facility] MR#: [id number] [address] [address] CEMPERARCADIO [address] [place] [address] Consultation SEX: F AGE: 66 : 1950 LABS: White count 7.6, hemoglobin 9.8, hematocrit 31.1, and platelets are 179. Procalcitonin is 0.05. Sodium is 128, potassium 4.4, creatinine 3.4, BUN is 67. There are several glucose readings greater than 350. 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 PLAN: The patient did have an MRI scheduled in [place] as an outpatient next week. We will attempt to obtain the MRI and arterial imaging while the patient is in-house. The patient may be discharged when able with no reason to hold her in the hospital for her foot ulceration as this could be managed as an outpatient. We will manage the wound with local wound care for now until further imaging can be completed. We will continue the Medihoney gel for now. We will have her follow up with Podiatry within one week after discharge. We will continue to follow in-house for now. Appreciate the help received from the wound care staff. Vasquez Spain DPM/ jaspal JOB #: [id number] CC: Scot Campos, Attending Physician Scot Campos, Family Physician
--- NOTE | 2016-12-20 12:27 | DS ---
ADMIT: 12/11/2016 RM/LOC: 420 [facility] MR#: [id number] [address] [place], [place] [address] ARCADIO ROSALES [address] [place] [address] Discharge Summary SEX: F AGE: 66 : 1950 ADMISSION DATE: 12/11/2016 DISCHARGE DATE: 12/14/2016 FINAL DIAGNOSES: 1. Rhinovirus pneumonia. 2. COPD (chronic obstructive pulmonary disease). 3. Chronic heart failure. 4. Preserved ejection fraction. 5. Acute kidney injury, on chronic kidney disease. 6. Acute on chronic hypoxic respiratory failure. 7. Diabetic foot wound. 8. Type 2 diabetes, uncontrolled. 9. Kidney transplant. 10.Atrial fibrillation with anticoagulation. REASON FOR ADMISSION: This is a 66-year-old female, who presented with shortness of breath. She was admitted and had a viral respiratory panel done which showed rhinovirus. She actually was seen in clinic, was treated for upper respiratory infection with some steroids but she continued to get worse and she presented to the Emergency Room. After she was admitted, she continued to improve. She was given a little extra diuresis. She had some elevation of her creatinine up to about 3.2. This trended down to 2.9 on the day of discharge. She was given high-dose steroids initially and then this was weaned down to oral steroids by the day of discharge. She had wound care on her foot wound as well as pulmonology. Blood sugar was a problem and did improve once her steroids were weaned down. Her pump was adjusted up a little bit as well. She initially was given Zosyn and vancomycin and by the day of discharge she was feeling well enough we discontinued her antibiotics completely. We had a discussion with her, they think they have black mold in her home and so we discussed that it would be good to get that rid of or get new living arrangement in the meantime. I will leave that up to them whether they choose to do that. I do not know if that is really the main thing causing her respiratory issues right now or not, but it probably does not improve her situation at all. DISCHARGE MEDICATIONS: 1. Abilify 2.5 mg at bedtime. 2. Aspirin 81 mg daily. 3. CellCept 5 mg b.i.d. 4. Prednisone 20 mg daily for three days, then 10 mg daily for 7 days. 5. Diflucan 100 mg daily for 14 days. 6. Iron 325 mg daily. 7. Digoxin 0.125 mg daily. 8. Lipitor 80 mg at bedtime. 9. Mirapex 0.25 mg at bedtime. 10.Mucinex 600 mg b.i.d. 11.Prograf 3 mg b.i.d. 12.Cardizem 360 mg daily. 13.Labetalol 100 mg b.i.d. ADMIT: 12/11/2016 RM/LOC: 420 [facility] MR#: [id number] [address] [address] CEMPERARCADIO [address] [place] [address] Discharge Summary SEX: F AGE: 66 : 1950 14.Viibryd 40 mg daily. 15.BREO 200/25, one puff daily. 16.DuoNebs q.4 hours. 17.Spiriva 1 puff daily. 18.Insulin pump. 19.Nicotine patch 7 mg daily. 20.Bumex 2 mg b.i.d. to start if she gets over 210 pounds. 21.Calcitriol 0.25 mcg Friday, Friday, Friday. 22.Calcium 1 p.o. b.i.d. 23.Glucagon 1 mg p.r.n. 24.Lorazepam 0.5 mg to 1 mg b.i.d. p.r.n. 25.ProAir q.4 hours p.r.n. DISCHARGE INSTRUCTIONS: 1. Check blood sugars at least four times a day. 2. Low-salt diet. 3. Get a CBC, BMP, PT/INR on the . 4. She is holding her Coumadin because her level was already supratherapeutic at 4.7. 5. She will have 2 L of oxygen. 6. She will have daily weights. 7. Follow up with me on 12/17. Scot Campos MD/ smita JOB #: [id number] CC: Scot Campos MD, Attending Physician Scot Campos MD, Family Physician
--- NOTE | 2016-12-21 17:59 | ER ---
ADMIT: 12/11/2016 RM/LOC: 420 [facility] MR#: [id number] [address] [place], [place] [address] ARCADIO ROSALES [address] [place] [address] Emergency Room Report SEX: F AGE: 66 : 1950 DATE: 12/11/2016 ADDENDUM: See T-sheet for complete H and P. A 66-year-old, female with severe COPD, status post renal transplant and CHF, presents with worsening shortness of breath over the past 24 hours. It has been significantly worse since this morning. She has had some improvement with the use of her inhalers at home, but she still feels extremely short of breath and has had to increase her oxygen at home. She had a recent hospitalization for similar symptoms back in the end of October. Our workup in the ER shows that white blood cell count is 8.7, hemoglobin is 9.4, platelets 162. Sodium 128, potassium 4.4, carbon dioxide 28, BUN 67, glucose 628, creatinine 3.4. BNP is 13,861 with an INR of 2.65 and negative serum ketones. ABG on 6 L of oxygen with pH 7.4, pCO2 of 46.4, and a PO2 of 71. EKG showed left anterior fascicular block, sinus rhythm, and chest x-ray showed increasing pulmonary edema/CHF with a small effusion. The patient did get breathing treatments in the Emergency Department increased to 6 L. She was not given any Lasix here because of her significantly compromised renal function. When I saw her last time, she did require BiPAP while in the Emergency Department, but she is slightly better on this visit than previous. I spoke to Dr. Rojas, who is on for the patient's primary care physician. We will be admitting the patient for severe COPD with acute exacerbation, acute on chronic renal failure, CHF, poorly-controlled diabetes, chronic anticoagulation, pseudohyponatremia. Gilles Mack MD/ jaspal JOB #: [id number] CC: Scot Campos MD, Attending Physician Scot Campos MD, Family Physician
[2017-01-15] MEDS ORDERED: HUMALOG100 UNIT/2 SQ (17:51)
[2017-01-15] MEDS ORDERED: NICOTINE PATCH1 EAC1 TD (17:52)
[2017-01-15] MEDS ORDERED: ATIVAN-DPS0.5 MG PO (17:52)
[2017-01-15] MEDS ORDERED: BUMETANIDE2 MG PO (17:52)
[2017-01-15] MEDS ORDERED: TRANDATE DPS100 MG PO (17:52)
[2017-01-15] MEDS ORDERED: ASPIRIN EC81 MG PO (17:53)
[2017-01-15] MEDS ORDERED: LIPITOR80 MG PO (17:53)
[2017-01-15] MEDS ORDERED: ABILIFY5 MG PO (17:53)
[2017-01-15] MEDS ORDERED: CALTRATE-600 W600 MG PO (17:54)
[2017-01-15] MEDS ORDERED: DILTIAZEM ER360 MG PO (17:54)
[2017-01-15] MEDS ORDERED: LANOXIN DPS0.125 MG PO (17:54)
[2017-01-15] MEDS ORDERED: DUONEB DPS3 ML PO (17:55)
[2017-01-15] MEDS ORDERED: FEOSOL-DPS325 MG PO (17:55)
[2017-01-15] MEDS ORDERED: BREO ELLIP1 PUFF/DOS IH (17:56)
[2017-01-15] MEDS ORDERED: GUAIFENESIN ER600 MG PO (17:56)
[2017-01-15] MEDS ORDERED: SLOW-MAG71.5 MG PO (17:56)
[2017-01-15] MEDS ORDERED: CELLCEPT500 MG PO (17:57)
[2017-01-15] MEDS ORDERED: MIRAPEX DPS0.25 MG PO (17:57)
[2017-01-15] MEDS ORDERED: PROAIR HFA8.5 GM IH (17:57)
[2017-01-15] MEDS ORDERED: ROCALTROL DPS0.5 MCG PO (17:58)
[2017-01-15] MEDS ORDERED: TACROLIMUS1 MG PO (17:58)
[2017-01-15] MEDS ORDERED: VIIBRYD40 MG PO (17:58)
[2017-01-15] MEDS ORDERED: SPIRIVA18 MCG IH (17:58)
[2017-01-15] MEDS ORDERED: KLOR-CON M2020 ME1 PO (17:59)
[2017-01-15] MEDS ORDERED: ZAROXOLYN5 MG PO (17:59)
== END 2016-12-14 13:45 | disposition home or self-care (01) | DRG 189 ==
LOC: ER 13:49 → 4PCU 16:50
PROVIDERS: ADMIT Internal Medicine
DX: J96.21 Acute and chronic respiratory failure with hypoxia (principal); N17.9 Acute kidney failure, unspecified; J12.89 Other viral pneumonia; I50.32 Chronic diastolic (congestive) heart failure; I13.0 Hypertensive heart and chronic kidney disease with heart failure and stage 1 through stage 4 chronic kidney disease, or unspecified chronic kidney disease; I48.91 Unspecified atrial fibrillation; E11.42 Type 2 diabetes mellitus with diabetic polyneuropathy; E11.22 Type 2 diabetes mellitus with diabetic chronic kidney disease; J44.0 Chronic obstructive pulmonary disease with (acute) lower respiratory infection; G25.81 Restless legs syndrome; J44.1 Chronic obstructive pulmonary disease with (acute) exacerbation; Z94.0 Kidney transplant status; E11.621 Type 2 diabetes mellitus with foot ulcer; L97.519 Non-pressure chronic ulcer of other part of right foot with unspecified severity; E11.51 Type 2 diabetes mellitus with diabetic peripheral angiopathy without gangrene; E11.65 Type 2 diabetes mellitus with hyperglycemia; N18.3 Chronic kidney disease, stage 3 (moderate); I44.4 Left anterior fascicular block; E03.9 Hypothyroidism, unspecified; F32.9 Major depressive disorder, single episode, unspecified; E78.5 Hyperlipidemia, unspecified; G47.33 Obstructive sleep apnea (adult) (pediatric); Z86.711 Personal history of pulmonary embolism; Z87.891 Personal history of nicotine dependence; Z79.01 Long term (current) use of anticoagulants; Z79.82 Long term (current) use of aspirin; Z96.41 Presence of insulin pump (external) (internal); Z79.52 Long term (current) use of systemic steroids; Z79.4 Long term (current) use of insulin

== ENCOUNTER → 2016-12-24 | Outpatient (CLI) | payer MEDICARE, OTHER ==
[~2016-12-24] MED LIST changes: +DIFLUCAN DPS100 MG PO; +DILTIAZEM ER360 MG PO; +DUONEB DPS3 ML PO; +LANOXIN DPS0.125 MG PO; +SLOW-MAG71.5 MG PO
== END | disposition home or self-care (01) ==
LOC: THER.SSS 17:26
DX: I50.9 Heart failure, unspecified (principal)